=== PATIENT | male | born 1985 | race Caucasian/White ===

== ENCOUNTER 2018-07-16 13:40 | Emergency (ER) | payer BC, SELFPAY ==
[2018-07-16] MEDS ORDERED: ONDANSETRON 4 MG/2 ML VIAL ONE (14:06)
[2018-07-16] MEDS ORDERED: TETRACAINE HCL 0.5% 2ML OPTH ONE (14:06)
[2018-07-16] MEDS ORDERED: NA CHLORIDE 0.9% 1,000 ML ONE (14:06)
[2018-07-16] MEDS ORDERED: MORPHINE 4 MG/ML SYR ONE (14:06)
[2018-07-16] MEDS ORDERED: NA CHLORIDE 0.9% 500 ML ONE (14:13)
[2018-07-16] MEDS ORDERED: FLUORESCEIN SODIUM 0.6 MG/WRAP ONE (14:13)
[2018-07-16] MEDS ORDERED: PIPER/TAZO/NS 3.375gm 3.375 GM/100 ML BAG ONE (14:45)
[2018-07-16] MEDS ORDERED: LORazepam 2 MG/ML VIAL ONE (14:45)
--- NOTE | 2018-07-16 15:07 | ER ---
Nurse's Notes [facility] Name: Scott Alvarez Age: 33 yrs Sex: Male : 1985 Arrival Date: 07/16/2018 Time: 13:43 Bed 13 Private MD: Diagnosis: CHEMICAL CONJUNCTIVITIS Presentation: 07/16 13:52 Presenting complaint: Patient states: about two days ago I started having pain and sg redness in my eye, i thought it was pink eye so I began treating it with some Eye drops that I had left from a previous infection. Today my face is swelling and my eyes are red, the light is killing me, Cha never had this happen before. Transition of care: patient was not received from another setting of care. Onset of symptoms was July 16, 2018. Risk Assessment: Do you want to hurt yourself or someone else? Patient reports no desire to harm self or others. Initial Sepsis Screen: Does the patient meet any 2 criteria? No. Patient's initial sepsis screen is negative. Does the patient have a suspected source of infection? No. Patient's initial sepsis screen is negative. Care prior to arrival: None. 13:52 Method Of Arrival: Ambulatory sg 13:52 Acuity: CHANEL 3 sg Historical: - Allergies: 13:54 No Known Allergies; sg - Home Meds: 14:35 testosterone [Active]; tw2 - PMHx: 13:54 Blood Disorder; sg - PSHx: 13:54 None; sg - Immunization history:: Adult Immunizations. - Social history:: Smoking status: Patient uses tobacco products, chewing tobacco. - Ebola Screening: : Patient negative for fever greater than or equal to 101.5 degrees Fahrenheit, and additional compatible Ebola Virus Disease symptoms Patient denies exposure to infectious person Patient denies travel to an Ebola-affected area in the 21 days before illness onset No symptoms or risks identified at this time. - Family history:: not pertinent. - Hospitalizations: : No recent hospitalization is reported. - History obtained from: . Screenin:32 Abuse screen: Denies threats or abuse. Nutritional screening: No deficits noted. tw2 Tuberculosis screening: No symptoms or risk factors identified. Fall Risk None identified. Assessment: 14:35 General: Appears uncomfortable, well groomed, Behavior is calm, cooperative, tw2 appropriate for age. Pain: Complains of pain in right eye and left eye. Neuro: Level of Consciousness is awake, alert, obeys commands, Oriented to person, place, time, situation. Cardiovascular: Denies chest pain, shortness of breath, Capillary refill Patient's skin is warm and dry. EENT: Eyes are tearing on right upper eyelid, right outer canthus, outer aspect of conjuctiva of right eye, iris of right eye, inner aspect of conjuctiva of right eye, right inner canthus, right lower eyelid, left upper eyelid, left outer canthus, outer aspect of conjuctiva of left eye, iris of left eye, inner aspect of conjunctiva of left eye, left inner canthus and left lower eyelid redness noted to b/l eyes. 14:36 Cardiovascular: Heart tones S1 S2. Respiratory: Airway is patent Respiratory effort is tw2 even, unlabored, Respiratory pattern is regular, symmetrical, Breath sounds are clear bilaterally. GI: No signs and/or symptoms were reported involving the gastrointestinal system. Abdomen is round non-distended, Bowel sounds present X 4 quads. : No signs and/or symptoms were reported regarding the genitourinary system. Derm: Skin is intact, is healthy with good turgor, Skin temperature is warm. Musculoskeletal: Range of motion: intact in all extremities. 15:30 Reassessment: No changes from previously documented assessment. Patient and/or family tw2 updated on plan of care and expected duration. Pain level reassessed. Patient is alert, oriented x 3, equal unlabored respirations, skin warm/dry/pink. 15:58 Reassessment: No changes from previously documented assessment. Patient and/or family tw2 updated on plan of care and expected duration. Pain level reassessed. Patient is alert, oriented x 3, equal unlabored respirations, skin warm/dry/pink. Patient states symptoms have improved. Vital Signs: 14:31 BP 162 / 99; Pulse 99; Resp 17; Pulse Ox 95% on R/A; Pain 10/10; tw2 14:32 Temp 98.9(O); tw2 15:30 BP 150 / 91; Pulse 97; Resp 17; Pulse Ox 97% on R/A; tw2 15:57 BP 153 / 93; Pulse 97; Resp 17; Pulse Ox 100% on R/A; tw2 14:31 b/l EYE PAIN tw2 ED Course: 13:43 Patient arrived in ED. mr 13:48 Shelia Headley FNP is [facility]. kav 13:48 Rico Elias MD is Attending Physician. kav 13:53 Halley Bradford, MAURICIO is Primary Nurse. tw2 13:53 Triage completed. sg 13:53 Arm band placed on. sg 13:53 Bed in low position. Call light in reach. Pulse ox on. NIBP on. tw2 13:55 Initial lab(s) drawn, by me, sent to lab. Inserted saline lock: 20 gauge in right sg antecubital area, using aseptic technique. Blood collected. 15:06 Maggie Fleming MD is Referral Physician. kav 15:14 Awaiting: COMPLETION OF IV ABX PRIOR TO DISCHARGE. tw2 15:59 No provider procedures requiring assistance completed. IV discontinued, intact, tw2 bleeding controlled, No redness/swelling at site. Pressure dressing applied. Administered Medications: Discontinued: NS 0.9% 500 ml IV at bolus once; to irrigate eyes 14:10 Drug: Zofran 4 mg Route: IVP; Site: right antecubital; tw2 15:08 Follow up: Response: No adverse reaction tw2 14:13 Drug: morphine 4 mg Route: IVP; Site: right antecubital; tw2 14:40 Follow up: Response: No adverse reaction tw2 14:15 Drug: NS 0.9% 1000 ml Route: IV; Rate: 1000 ml; Site: right antecubital; tw2 15:59 Follow up: IV Status: Completed infusion; IV Intake: 1000ml tw2 14:31 Drug: Tetracaine Drops 0.5 % 1 drops Route: Ophthalmic; Site: both eyes; tw2 14:33 Drug: NS 0.9% 500 ml {Note: both eyes.} Route: IV; Rate: bolus; Site: Other; tw2 15:13 Follow up: IV Status: Order to discontinue infusion tw2 14:42 Drug: Ativan 2 mg Route: IVP; Site: right antecubital; tw2 15:58 Follow up: Response: No adverse reaction tw2 14:54 Drug: Zosyn 3.375 grams Route: IVPB; Infused Over: 60 mins; Site: right antecubital; tw2 15:58 Follow up: Response: No adverse reaction; IV Status: Completed infusion tw2 15:13 CANCELLED (md discretion): Fluorescein Strip 2 strip Ophthalmic in both eyes once tw2 Intake: 15:59 IV: 1000ml; Total: 1000ml. tw2 Outcome: 15:07 Discharge ordered by MD. kav 15:59 Condition: stable tw2 16:00 Patient left the ED. tw2 16:00 Discharged to home ambulatory, with significant other. tw2 16:00 Discharge instructions given to patient, significant other, Instructed on discharge instructions, follow up and referral plans. medication usage, Demonstrated understanding of instructions, follow-up care, medications, Prescriptions given X 2. Signatures: Bandar Griggs, RN RN sg Shelia Headley, [employer] Lucie Croft mr Halley Bradford, RN RN tw2 Corrections: (The following items were deleted from the chart) 16:02 15:59 Discharged to home ambulatory, with significant other, tw2 tw2 16:02 15:59 Discharge instructions given to patient, significant other, Instructed on tw2 discharge instructions, follow up and referral plans. no drinking with medication, no driving heavy equipment, medication usage, crutch walking, Demonstrated understanding of instructions, follow-up care, medications, crutch walking, splint care, Prescriptions given X 1, tw2 16:03 16:00 Discharge instructions given to patient, significant other, Instructed on tw2 discharge instructions, follow up and referral plans. medication usage, Demonstrated understanding of instructions, follow-up care, medications, Prescriptions given X 1, tw2
--- NOTE | 2018-07-16 15:07 | EDPHYS ---
Physician Documentation [facility] Name: Scott Alvarez Age: 33 yrs Sex: Male : 1985 Arrival Date: 07/16/2018 Time: 13:43 Bed 13 Private MD: ED Physician Rico Elias HPI: 07/16 14:56 This 33 yrs old Male presents to ER via Ambulatory with complaints of Vision kav Problem. 14:56 Onset: The symptoms/episode began/occurred acutely, just prior to arrival. Associated kav signs and symptoms: Pertinent positives: bilateral eye swelling of eyelids and bilateral injected scleral. Modifying factors: The patient symptoms are alleviated by nothing, the patient symptoms are aggravated by nothing. The patient has not experienced similar symptoms in the past. The patient has not recently seen a physician. patient reports putting some over the counter eyedrops in both eyes. 15:00 The patient is experiencing floaters, redness, to both eyes, caused by chemicals. kav Duration: the symptoms are continuous. Aggravated by opening eye, Alleviated by covering eye, medications. Associated signs and symptoms: Pertinent positives: None. Pertinent negatives: None. Patient does not utilize any form of vision correction. Severity of symptoms: At their worst the symptoms were moderate just prior to arrival. Historical: - Allergies: 13:54 No Known Allergies; sg - Home Meds: 14:35 testosterone [Active]; tw2 - PMHx: 13:54 Blood Disorder; sg - PSHx: 13:54 None; sg - Immunization history:: Adult Immunizations. - Social history:: Smoking status: Patient uses tobacco products, chewing tobacco. - Ebola Screening: : Patient negative for fever greater than or equal to 101.5 degrees Fahrenheit, and additional compatible Ebola Virus Disease symptoms Patient denies exposure to infectious person Patient denies travel to an Ebola-affected area in the 21 days before illness onset No symptoms or risks identified at this time. - Family history:: not pertinent. - Hospitalizations: : No recent hospitalization is reported. - History obtained from: . ROS: 15:00 Constitutional: Negative for fever, chills, and weight loss, ENT: Negative for injury, kav pain, and discharge, Neck: Negative for injury, pain, and swelling, Cardiovascular: Negative for chest pain, palpitations, and edema, Respiratory: Negative for shortness of breath, cough, wheezing, and pleuritic chest pain, Abdomen/GI: Negative for abdominal pain, nausea, vomiting, diarrhea, and constipation, Back: Negative for injury and pain, : Negative for injury, bleeding, discharge, and swelling, MS/Extremity: Negative for injury and deformity, Skin: Negative for injury, rash, and discoloration, Neuro: Negative for headache, weakness, numbness, tingling, and seizure, Psych: Negative for depression, anxiety, suicide ideation, homicidal ideation, and hallucinations, Allergy/Immunology: Negative for hives, rash, and allergies, Endocrine: Negative for neck swelling, polydipsia, polyuria, polyphagia, and marked weight changes, Hematologic/Lymphatic: Negative for swollen nodes, abnormal bleeding, and unusual bruising. 15:00 Eyes: Positive for pain, redness, tearing, Negative for discharge. Exam: 15:00 Visual Acuity: I have reviewed the nursing documentation. kav 15:00 Constitutional: This is a well developed, well nourished patient who is awake, alert, and in no acute distress. Head/Face: Normocephalic, atraumatic. ENT: Nares patent. No nasal discharge, no septal abnormalities noted. Tympanic membranes are normal and external auditory canals are clear. Oropharynx with no redness, swelling, or masses, exudates, or evidence of obstruction, uvula midline. Mucous membranes moist. Neck: Trachea midline, no thyromegaly or masses palpated, and no cervical lymphadenopathy. Supple, full range of motion without nuchal rigidity, or vertebral point tenderness. No Meningismus. Chest/axilla: Normal chest wall appearance and motion. Nontender with no deformity. No lesions are appreciated. Cardiovascular: Regular rate and rhythm with a normal S1 and S2. No gallops, murmurs, or rubs. Normal PMI, no JVD. No pulse deficits. Respiratory: Lungs have equal breath sounds bilaterally, clear to auscultation and percussion. No rales, rhonchi or wheezes noted. No increased work of breathing, no retractions or nasal flaring. Abdomen/GI: Soft, non-tender, with normal bowel sounds. No distension or tympany. No guarding or rebound. No evidence of tenderness throughout. Back: No spinal tenderness. No costovertebral tenderness. Full range of motion. Skin: Warm, dry with normal turgor. Normal color with no rashes, no lesions, and no evidence of cellulitis. MS/ Extremity: Pulses equal, no cyanosis. Neurovascular intact. Full, normal range of motion. Neuro: Awake and alert, GCS 15, oriented to person, place, time, and situation. Cranial nerves II-XII grossly intact. Motor strength 5/5 in all extremities. Sensory grossly intact. Cerebellar exam normal. Normal gait. Psych: Awake, alert, with orientation to person, place and time. Behavior, mood, and affect are within normal limits. 15:00 Eyes: Periorbital structures: appear normal, erythema, that is moderate, bilaterally, Pupils: no acute changes, equal, round, and reactive to light and accomodation, Extraocular movements: no acute changes, Conjunctiva: injected, bilaterally, Corneas: are normal, no acute changes, Sclera: no appreciated abnormality. Vital Signs: 14:31 BP 162 / 99; Pulse 99; Resp 17; Pulse Ox 95% on R/A; Pain 10/10; tw2 14:32 Temp 98.9(O); tw2 15:30 BP 150 / 91; Pulse 97; Resp 17; Pulse Ox 97% on R/A; tw2 15:57 BP 153 / 93; Pulse 97; Resp 17; Pulse Ox 100% on R/A; tw2 14:31 b/l EYE PAIN tw2 MDM: 13:48 Medical screening is not applicable. kav 15:00 Differential diagnosis: Acute iritis of Chemical conjunctivitis in both eyes. Allergic kav conjunctivitis in both eyes. Data reviewed: vital signs, nurses notes. Administered Medications: Discontinued: NS 0.9% 500 ml IV at bolus once; to irrigate eyes 14:10 Drug: Zofran 4 mg Route: IVP; Site: right antecubital; tw2 15:08 Follow up: Response: No adverse reaction tw2 14:13 Drug: morphine 4 mg Route: IVP; Site: right antecubital; tw2 14:40 Follow up: Response: No adverse reaction tw2 14:15 Drug: NS 0.9% 1000 ml Route: IV; Rate: 1000 ml; Site: right antecubital; tw2 15:59 Follow up: IV Status: Completed infusion; IV Intake: 1000ml tw2 14:31 Drug: Tetracaine Drops 0.5 % 1 drops Route: Ophthalmic; Site: both eyes; tw2 14:33 Drug: NS 0.9% 500 ml {Note: both eyes.} Route: IV; Rate: bolus; Site: Other; tw2 15:13 Follow up: IV Status: Order to discontinue infusion tw2 14:42 Drug: Ativan 2 mg Route: IVP; Site: right antecubital; tw2 15:58 Follow up: Response: No adverse reaction tw2 14:54 Drug: Zosyn 3.375 grams Route: IVPB; Infused Over: 60 mins; Site: right antecubital; tw2 15:58 Follow up: Response: No adverse reaction; IV Status: Completed infusion tw 15:13 CANCELLED (md discretion): Fluorescein Strip 2 strip Ophthalmic in both eyes once tw2 Disposition: 07/16/18 15:07 Discharged to Home. Impression: CHEMICAL CONJUNCTIVITIS. - Condition is Stable. - Prescriptions for cefdinir 300 mg Oral capsule - take 1 capsule by ORAL route every 12 hours; 20 capsule. Ultram 50 mg Oral Tablet - take 1 tablet by ORAL route every 6 hours As needed; 30 tablet. - Medication Reconciliation Form, Thank You Letter, Antibiotic Education, Prescription Opioid Use, Work release form form. - Follow up: Private Physician; When: 2 - 3 days; Reason: Recheck today's complaints, Continuance of care, Re-evaluation by your physician. Follow up: Maggie Fleming MD; When: 1 - 2 days; Reason: Recheck today's complaints, Continuance of care, Re-evaluation by your physician. - Problem is new. - Symptoms have improved. Addendum: 07/18/2018 08:08 Co-signature as Attending Physician, Rico Elias MD I agree with the assessment and w a plan of care. Signatures: Bandar Griggs, RN RN Shelia Sandhu, DIRECTOR MARKETING ANALYTICS DIRECTOR [employer]ETING [employer]NALYT[employer] Halley Padron RN RN tw2 Rico Elias MD MD ks Corrections: (The following items were deleted from the chart) 07/16 15:13 15:07 Fluorescein Strip 2 strip Ophthalmic in both eyes once ordered. tw2 tw2 16:00 15:07 07/16/2018 15:07 Discharged to Home. Impression: CHEMICAL CONJUNCTIVITIS. tw2 Condition is Stable. Forms are Medication Reconciliation Form, Thank You Letter, Antibiotic Education, Prescription Opioid Use. Follow up: Private Physician; When: 2 - 3 days; Reason: Recheck today's complaints, Continuance of care, Re-evaluation by your physician. Follow up: Maggie Fleming; When: 1 - 2 days; Reason: Recheck today's complaints, Continuance of care, Re-evaluation by your physician. Problem is new. Symptoms have improved. kaerica
== END 2018-07-16 16:00 | disposition home or self-care (01) ==
LOC: ER 13:40
DX: H10.213 Acute toxic conjunctivitis, bilateral (principal); Z72.0 Tobacco use
CPT/HCPCS: 96361; 96365; 96375; 99284; J2405; J2543; J7030

== ENCOUNTER 2019-01-04 12:29 | Emergency (ER) | payer SELFPAY ==
--- NOTE | 2019-01-04 13:54 | ER ---
Nurse's Notes [facility] Name: Scott Alvarez Age: 33 yrs Sex: Male : 1985 Arrival Date: 01/04/2019 Time: 12:31 Bed 19 Private MD: Diagnosis: Visual disturbances Presentation: 01/04 12:51 Presenting complaint: Patient states: "I was just sitting watching TV Friday and a aa5 bright light came on the TV and ever since then I see a bright spot on my left eye". Pt states "my left eye is irritating and my eyes have been watering and sensitive to light". Transition of care: patient was not received from another setting of care. Onset of symptoms was December 2018. Risk Assessment: Do you want to hurt yourself or someone else? Patient reports no desire to harm self or others. Initial Sepsis Screen: Does the patient meet any 2 criteria? No. Patient's initial sepsis screen is negative. Does the patient have a suspected source of infection? No. Patient's initial sepsis screen is negative. Care prior to arrival: None. 12:51 Method Of Arrival: Ambulatory aa5 12:51 Acuity: CHANEL 2 aa5 Triage Assessment: 12:56 General: Appears in no apparent distress. uncomfortable, Behavior is calm, cooperative, hj appropriate for age. Pain: Denies pain. Historical: - Allergies: 12:54 No Known Allergies; aa5 - Home Meds: 13:01 testosterone [Active]; hj - PMHx: 12:54 blood disorder; aa5 - PSHx: 12:54 None; aa5 - Immunization history:: Flu vaccine status is unknown. - Social history:: Smoking status: Patient/guardian denies using tobacco. - Ebola Screening: : No symptoms or risks identified at this time. Screenin:56 Abuse screen: Denies threats or abuse. Denies injuries from another. Nutritional hj screening: No deficits noted. Tuberculosis screening: No symptoms or risk factors identified. Fall Risk None identified. Vital Signs: 12:54 BP 164 / 96; Pulse 95; Resp 18 S; Temp 98.6(TE); Pulse Ox 96% on R/A; Weight 141.97 kg aa5 (R); Height 5 ft. 11 in. (180.34 cm) (R); Pain 0/10; 12:54 Body Mass Index 43.65 (141.97 kg, 180.34 cm) aa5 ED Course: 12:31 Patient arrived in ED. mr 12:51 Arm band placed on. aa5 12:53 Triage completed. aa5 12:55 Art Oropeza RN is Primary Nurse. hj 12:57 Patient has correct armband on for positive identification. Bed in low position. Call hj light in reach. Side rails up X 1. 13:09 Joni Lombardi MD is Attending Physician. gs 13:52 Vito Diallo MD is Referral Physician. gs 14:12 No provider procedures requiring assistance completed. Patient did not have IV access hj during this emergency room visit. 14:19 Primary Nurse role handed off by Art Oropeza RN gs Administered Medications: No medications were administered Outcome: 13:53 Discharge ordered by . gs 14:12 Discharged to home ambulatory, with family. hj 14:12 Condition: stable 14:12 Discharge instructions given to patient, family, Instructed on discharge instructions, follow up and referral plans. Demonstrated understanding of instructions, follow-up care. 14:12 Patient left the ED. hj 14:20 Patient left the ED. Signatures: Edita De La Vega mr Chew, Dori RN RN aa5 Art Oropeza RN RN Joni Lombardi MD MD Corrections: (The following items were deleted from the chart) 12:54 12:51 Presenting complaint: Patient states: "I was just sitting watching TV Friday aa5 and a bright light came on the TV and ever since then I see a bright spot on my left eye". aa5 13:03 12:51 Acuity: CHANEL 3 aa5 aa5
--- NOTE | 2019-01-04 13:55 | EDPHYS ---
Physician Documentation [facility] Name: Scott Alvarez Age: 33 yrs Sex: Male : 1985 Arrival Date: 01/04/2019 Time: 12:31 Bed 19 Private MD: ED Physician Joni Lombardi HPI: 01/04 14:14 This 33 yrs old Male presents to ER via Ambulatory with complaints of Eye gs Problem. 14:14 The patient is experiencing decreased vision. Onset: The symptoms/episode gs began/occurred 2 day(s) ago, and became persistent. Duration: the symptoms are continuous. Aggravated by FOCUSING. WAS WATCHING TV SAW A BRIGHT LIGHT SINCE THEN SEES BLACK DOT OUT OF LEFT EYE WHICH TRACKS WITH EYE MOVEMENT. Historical: - Allergies: 12:54 No Known Allergies; aa5 - Home Meds: 13:01 testosterone [Active]; hj - PMHx: 12:54 blood disorder; aa5 - PSHx: 12:54 None; aa5 - Immunization history:: Flu vaccine status is unknown. - Social history:: Smoking status: Patient/guardian denies using tobacco. - Ebola Screening: : No symptoms or risks identified at this time. ROS: 14:14 Neuro: Negative for altered mental status, numbness, speech changes, weakness. gs 14:14 All other systems are negative. Exam: 14:14 Head/Face: Normocephalic, atraumatic. Eyes: Pupils equal round and reactive to light, gs extra-ocular motions intact. Lids and lashes normal. Conjunctiva and sclera are non-icteric and not injected. Cornea within normal limits. Periorbital areas with no swelling, redness, or edema. ENT: Nares patent. No nasal discharge, no septal abnormalities noted. Tympanic membranes are normal and external auditory canals are clear. Oropharynx with no redness, swelling, or masses, exudates, or evidence of obstruction, uvula midline. Mucous membranes moist. Cardiovascular: Regular rate and rhythm with a normal S1 and S2. No gallops, murmurs, or rubs. Normal PMI, no JVD. No pulse deficits. Respiratory: Lungs have equal breath sounds bilaterally, clear to auscultation and percussion. No rales, rhonchi or wheezes noted. No increased work of breathing, no retractions or nasal flaring. Abdomen/GI: Soft, non-tender, with normal bowel sounds. No distension or tympany. No guarding or rebound. No evidence of tenderness throughout. Skin: Warm, dry with normal turgor. Normal color with no rashes, no lesions, and no evidence of cellulitis. MS/ Extremity: Pulses equal, no cyanosis. Neurovascular intact. Full, normal range of motion. Neuro: Awake and alert, GCS 15, oriented to person, place, time, and situation. Cranial nerves II-XII grossly intact. Motor strength 5/5 in all extremities. Sensory grossly intact. Cerebellar exam normal. Normal gait. 14:14 Eyes: Extraocular movements: no acute changes, Corneas: no acute changes. Vital Signs: 12:54 BP 164 / 96; Pulse 95; Resp 18 S; Temp 98.6(TE); Pulse Ox 96% on R/A; Weight 141.97 kg aa5 (R); Height 5 ft. 11 in. (180.34 cm) (R); Pain 0/10; 12:54 Body Mass Index 43.65 (141.97 kg, 180.34 cm) aa5 MDM: 13:34 Patient medically screened. 14:14 Differential diagnosis: RETINAL DETACHMENT, CENTRAL VESSEL OCCLUSION. Data reviewed: vital signs, nurses notes. Physician consultation: Vito Diallo MD regarding patient's condition, and will see patient shortly, later today. ED course: NO EVIDENCE OF CVA, NO HEMIANOPSIA, TOLD TO RETURN IF ANY ISSUES SEEING OPTH.. 14:19 Counseling: I had a detailed discussion with the patient and/or guardian regarding: the gs presence of at least one elevated blood pressure reading (>120/80) during this emergency department visit. Special discussion: I have referred the patient to see his PCP for further evaluation of high blood pressure. Administered Medications: No medications were administered Disposition: 01/04/19 13:53 Discharged to Home. Impression: Visual disturbances. - Condition is Stable. - Discharge Instructions: Blurred Vision, Adult, Managing Your Hypertension. - Medication Reconciliation Form, Thank You Letter, Antibiotic Education, Prescription Opioid Use form. - Follow up: Vito Diallo MD; When: Today; Reason: 3:30 PM. Signatures: Dori Chew RN RN aa5 Art Oropeza RN RN Joni Lombardi MD MD Corrections: (The following items were deleted from the chart) 14:12 13:53 01/04/2019 13:53 Discharged to Home. Impression: Visual disturbances. Condition hj is Stable. Forms are Medication Reconciliation Form, Thank You Letter, Antibiotic Education, Prescription Opioid Use. Follow up: Vito Diallo; When: Today; Reason: 3:30 PM. gs 14:20 14:12 01/04/2019 13:53 Discharged to Home. Impression: Visual disturbances. Condition gs is Stable. Discharge Instructions: Blurred Vision, Adult. Forms are Medication Reconciliation Form, Thank You Letter, Antibiotic Education, Prescription Opioid Use. Follow up: Vito Diallo; When: Today; Reason: 3:30 PM. hj
== END 2019-01-04 14:20 | disposition home or self-care (01) ==
LOC: ER 12:29
DX: H53.8 Other visual disturbances (principal)
CPT/HCPCS: 99281

== ENCOUNTER 2020-08-15 15:48 | Emergency (ER) | payer OTHER, BC ==
--- OUTSIDE RECORDS SUMMARY | 2020-08-15 15:50 | XMS REPORT | Continuity of Care Document ---
:[address] [facility] t Address [address] [place] [address] Care Team Providers Name Role Phone Asked, Pcp Primary Care Physician Unavailable Walt Leon Attending Clinician Lab, Fam Pob I Attending Clinician Unavailable Doctor Unassigned, Name Attending Clinician Unavailable Lab, Covid Attending Clinician Unavailable ECHO Attending Clinician Unavailable Avelino KONG, I Attending Clinician Payers Payer Name Policy Type Policy Effective Date Expiration Date [facility] Number BCBSBCBS CHOICE [id number] 2019 [place] PPO/FEDERAL 00:00:00 Islam EMPL [id number] 2019-Presen tPPO Problems Condition Condition Condition Status Onset Resolution Last Treating Co mments Source Name Details Category Date Date Treatment Clinician Date Abdominal Abdominal Disease Active Tru ston pain pain 04-21 Methodi 00:00: st 00 Allergies, Adverse Reactions, Alerts This patient has no known allergies or adverse reactions. Social History Social Habit Start Date Stop Date Quantity Comments Source Sex Assigned At [facility] ethodist Tobacco use and 2020-04-21 2020-04-21 Never used [facility] ethodist exposure 00:00:00 00:00:00 Alcohol intake 2020-04-21 2020-04-21 Ex-drinker [facility] thodist 00:00:00 00:00:00 (finding) Smoking Status Start Date Stop Date Source Never smoker [place] Methodis t Medications Ordered Filled Start Stop Current Ordering Indication Dosage Frequency Signature Comments Components Source Medication Medication Date Date Medication? Clinician (SIG) Name Name anastrozole 2019- Yes 1mg Take 1 mg [place] (ARIMIDEX) 5-20 by mouth. Meth selina 1 mg chemo 00:00: st tablet 00 metFORMIN 2019-0 Yes 1000mg Take 1,000 [place] (GLUCOPHAGE 5-20 mg by Methodi ) 1,000 mg 00:00: mouth. st tablet 00 phentermine 2019-0 Yes TK ONE C [place] 15 MG 5-20 PO QAM Methodi capsule 00:00: st 00 tamoxifen 2020-0 Yes TK 1 T PO Tru ston (NOLVADEX) 5-20 BID PRF Method i 10 MG chemo 00:00: NIPPLE st tablet 00 SENSITIVIT Y testosteron 2015-11 Yes Inject 1.0 Barnes e cypionate 2-14 mL into Metho di (DEPOTESTOT 00:00: the muscle st ERONE 00 twice CYPIONATE) weekly 200 mg/mL injection Procedures This patient has no known procedures. Plan of Care Planned Activity Planned Date Details Comments Source Future Scheduled 2020-07-25 INFLUENZA VACCINE Ramakrishna n Islam Test 00:00:00 [code = INFLUENZA VACCINE] Encounters Start End Encounter Admission Attending Care Care Encounter Source Date/Time Date/Time Type Type Clinicians Facility Department ID 2020-06-10 2020-06-10 Telephone YiAGUILA tavarez [id number] 1964 00:00:00 00:00:00 Yudi GRACE [id number] [facility] [id number] 2020-06-08 2020-06-08 Laboratory Lab, [facility] [id number] 10:48:07 11:08:07 Only Fam Pob I Health [id number] [place] [id number] Professio [id number] nal [address] One 2020-06-08 2020-06-08 Letter Doctor SHEEHAN [id number] 00:00:00 00:00:00 (Out) Unassigned, LESLY [id number] Kiel [facility] [id number] 2020-06-08 2020-06-08 Letter Lab, Pcp [facility] [id number] 00:00:00 00:00:00 (Out) [facility] [id number] [place] [id number] Zunilda [id number] nal 044 Office [address] One 2020-04-21 2020-04-21 Outpatient ECHO, [facility] [id number] [place] 00:00:00 00:00:00 JASMEET Moore Method i st 2020-04-12 2020-04-12 Office SEAN You [id number] 14:49:16 16:18:21 Visit [place] [place] AMBULATOR [id number] Y [id number] Results This patient has no known results.
--- OUTSIDE RECORDS SUMMARY | 2020-08-15 15:50 | XMS REPORT | Clinical Summary ---
:1985 Author Organization [facility] Address [address] [place] [address] Care Team Providers Name Role Phone Asked, No Pcp Primary Care Provider Unavailable Allergies No Known Active Allergies Medications Medication Sig Dispensed Refills Start Date End Date Status testosterone Inject 1.0 mL into 0 11/06/2016 Active cypionate the muscle twice (DEPOTESTOTERONE weekly CYPIONATE) 200 mg/mL injection anastrozole Take 1 mg by mouth. 0 04/12/2020 Active (ARIMIDEX) 1 mg chemo tablet metFORMIN Take 1,000 mg by 0 04/12/2020 Ac tive (GLUCOPHAGE) 1,000 mg mouth. tablet phentermine 15 MG TK ONE C PO QAM 0 04/12/2020 Active capsule tamoxifen (NOLVADEX) TK 1 T PO BID PRF 0 04/12/2020 Active 10 MG chemo tablet NIPPLE SENSITIVITY Active Problems Problem Noted Date Abdominal pain 04/21/2020 Encounters Date Type Specialty Care Team Description 04/21/2020 Travel 04/06/2020 Travel after 08/15/2019 Social History Tobacco Use Types Packs/Day Years Used Date Never Smoker Smokeless Tobacco: Never Used Alcohol Use Drinks/Week oz/Week Comments Not Currently Sex Assigned at Date Recorded Not on file Last Filed Vital Signs Not on file Plan of Treatment Health Maintenance Due Date Last Done Comments INFLUENZA VACCINE 07/25/2020 11/05/2016 Results Not on fileafter 08/15/2019 Chery Alvarez Personal/Family Self 1985 [phone] (Home) [place] [address] Advance Directives For more information, please contact: [phone] Type Date Recorded 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
--- OUTSIDE RECORDS SUMMARY | 2020-08-15 15:50 | XMS REPORT | Summary of Care ---
:1985 Author Organization [facility] Address [address] [place] [address] Care Team Providers Name Role Phone Pcp, Does Not Have A Primary Care Provider Encounter Details Date Type Department Care Team Description 06/08/2020 Letter (Out) [facility] Family Medicine - Lab, Pcp Co clarence Heredia [address] [place] [address] [place] [address] Allergies Not on Filedocumented as of this encounter (statuses as of 06/08/2020) Medications Not on filedocumented as of this encounter (statuses as of 06/08/2020) Active Problems Not on filedocumented as of this encounter (statuses as of 06/08/2020) Social History Tobacco Use Types Packs/Day Years Used Date Never Assessed Sex Assigned at Date Recorded Not on file Job Start Date Occupation Industry Not on file Not on file Not on file Travel History Travel Start Travel End No recent travel history available. documented as of this encounter Last Filed Vital Signs Not on filedocumented in this encounter Plan of Treatment Health Maintenance Due Date Last Done Comments VARICELLA VACCINES (1 of 2 - 1986 2-dose childhood series) DTaP,Tdap,and Td Vaccines (1 - 1996 Tdap) Depression Screening 1997 INFLUENZA VACCINE (#1) 2020 PNEUMOCOCCAL 0-64 YEARS COMBINED Aged Out No longer eligible based on SERIES patient's age to complete this topic documented as of this encounter Results Not on filedocumented in this encounter Additional Health Concerns Infection Onset Date Last Indicated Resolved Time COVID-19 Rule Out 06/08/2020 06/08/2020 documented as of this encounter Insurance Payer Benefit Plan Subscriber ID Effective Dates Phone Address Type / Group [place] [id number] 2019-[place] [phone] [address] [place] t 7 [id number] [place] [address] documented as of this encounter
--- OUTSIDE RECORDS SUMMARY | 2020-08-15 15:50 | XMS REPORT | Summary of Care ---
:1985 Author Organization [facility] Address [address] [place] [address] Care Team Providers Name Role Phone Pcp, Does Not Have A Primary Care Provider Reason for Visit Reason Comments Lab Results Encounter Details Date Type Department Care Team Description 06/10/2020 Telephone ACCESS [facility] Yudi Richmond PA Lab Results [address] [place] [address] [place] [address] Allergies Not on Filedocumented as of this encounter (statuses as of 06/11/2020) Medications Not on filedocumented as of this encounter (statuses as of 06/11/2020) Active Problems Not on filedocumented as of this encounter (statuses as of 06/11/2020) Social History Tobacco Use Types Packs/Day Years [...] Depression Screening 1997 INFLUENZA VACCINE (#1) 2020 11/05/2016 PNEUMOCOCCAL 0-64 YEARS COMBINED Aged Out No longer eligible based on SERIES patient's age to complete this topic documented as of this encounter Results Not on filedocumented in this encounter Additional Health Concerns Infection Onset Date Last Indicated Resolved Time COVID-19 Confirmed 06/08/2020 06/08/2020 documented as of this encounter Insurance Payer Benefit Plan Subscriber ID Effective Dates Phone Address Type / Group BCBS OF [facility] [id number] 2019-[place] [phone] [address] PPO/POS [place] t 7 [id number] [place] [address] documented as of this encounter
--- OUTSIDE RECORDS SUMMARY | 2020-08-15 15:50 | XMS REPORT | Summary of Care ---
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 [address] [address] Exposure to Covid-19 [facility] Fam Pob I Virus (Primary Dx) [address] [place] [address] Allergies Not on Filedocumented as of this [...] filedocumented in this encounter Plan of Treatment Name Type Priority Associated Diagnoses Order S chedule COVID-19 (PCR MOLECULAR LAB Routine Exposure to Covid -19 Expected: 06/08/2020, TESTING) Virus Expires: 2020 Health Maintenance Due Date Last Done Comments VARICELLA VACCINES (1 of 2 - 1986 2-dose childhood series) DTaP,Tdap,and Td Vaccines (1 - 1996 Tdap) Depression Screening 1997 INFLUENZA VACCINE (#1) 2020 PNEUMOCOCCAL 0-64 YEARS COMBINED Aged Out No longer eligible based on SERIES patient's age to complete this topic documented as of this encounter Results Not on filedocumented in this encounter Visit Diagnoses Diagnosis Exposure to Covid-19 Virus - Primary documented in this encounter Additional Health Concerns Infection Onset Date Last Indicated Resolved Time COVID-19 Rule Out 06/08/2020 06/08/2020 documented as of this encounter Insurance Payer Benefit Plan Subscriber ID Effective Dates Phone Address Type / Group BCBS OF [facility] [id number] 2019-[place] [phone] [address] PPO/POS [place] t 7 [id number] [place] [address] documented as of this encounter
--- OUTSIDE RECORDS SUMMARY | 2020-08-15 15:50 | XMS REPORT | Summary of Care ---
:1985 Author Organization [facility] - Health Address [address] [place] [address] Care Team Providers Name Role Phone Pcp, Does Not Have A Primary Care Provider Encounter Details Date Type Department Care Team Description 06/08/2020 Letter (Out) [facility] PLYmediaharRB-Doors Message s Doctor Unassigned, No [address] [facility] [place] [address] [address] [facility] [phone] [place] [address] Allergies Not on Filedocumented as of this [...] Results Not on filedocumented in this encounter Insurance Payer Benefit Plan Subscriber ID Effective Dates Phone Address Type / Group [id number] 2019-[place] [phone] [address] PPO/POS [facility] 7 [id number] [place] [address] documented as of this encounter
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
[2020-08-15 18:51] LABS: Absolute Lymphocytes (CBC) 1.9 K/uL (0.7-4.9); Basophils % 0.6 % (0-1.3); Hematocrit 51.2 % (39.6-49.0); Lymphocytes % 22.5 % (15.3-44.8); MPV 8.6 fL (7.6-11.3); RBC Red Blood Cell Count 5.87 M/uL (4.33-5.43)
[2020-08-15] MEDS ORDERED: FENTANYL CITR 100 MCG/2 ML ONE ×2 (18:54→19:33)
[2020-08-15 19:12] LABS: Potassium 4.1 mmol/L (3.5-5.1)
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
[2020-08-15 20:08] VITALS: TEMP 98.3
[2020-08-15 20:09] VITALS: BP 152/88; O2SAT 96
== END 2020-08-15 20:01 | disposition home or self-care (01) ==
LOC: ER 15:48
DX: S29.012A Strain of muscle and tendon of back wall of thorax, initial encounter (principal); V47.5XXA Car driver injured in collision with fixed or stationary object in traffic accident, initial encounter
CPT/HCPCS: 85025; 80048; 36415; 86900; 86850; 86901; 70450; 72125; 71260; 74177; 71045; 73030; Q9967; J3010 ×2; 99284

== ENCOUNTER 2020-12-22 09:26 | Day surgery (SDC) | payer BC ==
--- OUTSIDE RECORDS SUMMARY | 2020-12-22 09:43 | XMS REPORT | Continuity of Care Document ---
:1985 Author Organization [facility] t Address [address] [place] [address] Care Team Providers Name Role Phone Avelino KONG I Attending Clinician Walt Leon Attending Clinician Lab, Fam Pob I Attending Clinician Unavailable Doctor Unassigned, Name Attending Clinician Unavailable Lab, Covid Attending Clinician Unavailable ECHO Attending Clinician Unavailable Problems This patient has no known problems. Allergies, Adverse Reactions, Alerts This patient has no known allergies or adverse reactions. Medications This patient has no known medications. Procedures This patient has no known procedures. Encounters Start End Encounter Admission Attending Care Care Encounter Source Date/Time Date/Time Type Type Clinicians Facility Department ID 2020-11-29 2020-11-29 Office SEAN You [id number] 16:50:38 17:00:38 Visit [facility] AMBULATOR [id number] Y [id number] 2020-06-10 2020-06-10 Telephone AGUILA [place] [id number] 00:00:00 00:00:00 Yudi GRACE [id number] [facility] [id number] 2020-06-08 2020-06-08 Laboratory Lab, [facility] [id number] 10:48:07 11:08:07 Only Fam Pob I Health [id number] [place] [id number] Professio [id number] nal 044 Office [address] One 2020-06-08 2020-06-08 Letter Doctor AGUILA [id number] 00:00:00 00:00:00 (Out) Unassigned, LESLY [id number] [facility] [id number] 2020-06-08 2020-06-08 Letter Lab, Pcp [facility] [id number] 00:00:00 00:00:00 (Out) Covid Health [id number] [place] [id number] Professio [id number] nal 044 Office [address] [facility] 2020-04-21 2020-04-21 Outpatient ECHO, [facility] [id number] [address] [place] [address] 00:00:00 00:00:00 JASMEET [facility] 2020-04-12 2020-04-12 Office SEAN You [id number] 14:49:16 16:18:21 Visit [facility] AMBULATOR [id number] Y [id number] Results This patient has no known results.
--- OUTSIDE RECORDS SUMMARY | 2020-12-22 09:43 | XMS REPORT | Summary of Care ---
:[address] [facility] [place] [address] Care Team Providers Name Role Phone Unavailable Primary Care Provider Unavailable Reason for Visit Reason Comments Hypogonadism Encounter Details Date Type Department Care Team Description 11/29/[address] [facility] Aron You I, Hypogonadism Urology [address] [facility] [address] [place] [address] [address] [place], [place] [address] [phone] Allergies No Known Active Allergiesdocumented as of this encounter (statuses as of 11/30/2020) Medications Medication Sig Dispensed Refills Start Date End Date Status sildenafil citrate Take by mouth 10 Tab 2 11/01/2013 Active (VIAGRA) 100 MG as directed. tablet minocycline Take 1 Cap by 14 Cap 0 01/05/2015 Act peter (MINOCIN, DYNACIN) mouth two 100 MG capsule times daily. Syringe/Needle, Use as 50 Each 0 06/20/2015 Act peter Disp, (SYRINGE directed 3CC/23GX1") 23G X 1" 3 ML MISC testosterone Inject 1.0 mL 10 mL 2 11/06/2016 Ac tive cypionate into the (DEPOTESTOTERONE muscle twice CYPIONATE) 200 weekly MG/ML injection Chorionic Inject 1,500 1 Each 2 11/07/2016 Active Gonadotropin Units into (NOVAREL) 93[address] the skin UNITS injection every 7 days. phentermine 15 MG Take 1 Cap by 30 Cap 5 04/12/2020 Active capsule mouth every morning. modafinil Take 1 Tablet 15 Tablet 3 11/29/2020 Activ e (PROVIGIL) 100 MG by mouth 1 tablet every 48 hours for 120 days. metformin Take 1 Tablet 60 Tablet 2 11/29/2020 Activ e (GLUCOPHAGE) 1000 by mouth 2 MG tablet times daily (with meals). anastrozole Take 1 Tablet 60 Tablet 0 11/29/2020 Act peter (ARIMIDEX) 1 MG by mouth 2 tablet times weekly. tamoxifen Take 1 Tablet 60 Tablet 2 11/29/2020 Activ e (NOLVADEX) 10 MG by mouth 2 tablet times daily as needed for Other (nipple sensitivity). finasteride Take 1 Tablet 30 Tablet 3 11/29/2020 Act peter (PROSCAR) 5 MG by mouth 1 tablet daily for 120 days. metformin Take 1 Tab by 60 Tab 0 08/03/2020 Disco ntinued (GLUCOPHAGE) 1000 mouth 2 times 1 (*Therapy MG tablet daily (with complete d) meals). tamoxifen Take 1 Tab by 60 Tab 0 08/03/2020 Disco ntinued (NOLVADEX) 10 MG mouth 2 times 1 (*Therapy tablet daily as completed) needed for Other (nipple sensitivity). anastrozole Take 1 Tab by 60 Tab 0 08/03/2020 Dis continued (ARIMIDEX) 1 MG mouth 2 times 1 (*Therapy tablet weekly. completed) finasteride Take 1 Tablet 30 Tablet 3 11/29/2020 Dis continued (PROSCAR) 5 MG by mouth 1 (*Err or) tablet daily for 120 days. documented as of this encounter (statuses as of 11/30/2020) Active Problems Problem Noted Date Hypogonadism male 11/01/2013 Encounter for long-term (current) use of other medicat ions 11/01/2013 documented as of this encounter (statuses as of 11/30/2020) Immunizations Name Administration Dates Next Due Influenza Intradermal 11/05/2016 documented as of this encounter Social History Tobacco Use Types Packs/Day Years Used Date Never Smoker Smokeless Tobacco: Current User Chew Comments: 1/2 can per day Alcohol Use Drinks/Week oz/Week Comments Yes 20 Standard drinks or equivalent 20.0 Sex Assigned at Date Recorded Not on file documented as of this encounter Last Filed Vital Signs Vital Sign Reading Time Taken Comments Blood Pressure 143/80 11/29/2020 6:25 PM EDUCATION PARAPROFESSIONAL Pulse 93 11/29/2020 6:25 PM EDUCATION PARAPROFESSIONAL Temperature - - Respiratory Rate - - Oxygen Saturation - - Inhaled Oxygen Concentration - - Weight 129.3 kg (285 lb) 11/29/2020 6:25 PM EDUCATION PARAPROFESSIONAL Height 154.9 cm (5' 1") 11/29/2020 6:25 PM EDUCATION PARAPROFESSIONAL Body Mass Index 53.85 11/29/2020 6:25 PM EDUCATION PARAPROFESSIONAL documented in this encounter Progress Notes Armani You MD - 11/29/2020 4:40 PM CSTI saw and evaluated the patient and agree with the resident's/fellow's findings as written. 35 y.o. 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 -On hold until umbilical hernia is repaired, has been evaluated by general surgery (on hold due to COVID) -Goal weight: 240 lbs -Previously at [employer] -TC 150mg QW -Ipamorelin -Anastrazole Side effect: Primarily concerned about hair loss with the testosterone, refractory to rogaine Currently -TC 0.75cc BIW -Ran out of Anastrazole 1mg BIW since August 2020 (out of refills) -Currently on Tamoxifen 20 mg qHS without any breast enlargement or sensitivity (previously with nipple tenderness- resolved) -Weight loss regimen: Currently on modafinil (received it from ), and had anxiety + jitters/stuttering while on phentermine Patient does not want to preserve fertility and testicular size. Patient does have a personal history of gynecomastia and/or concerns about the condition. Patient does not have a Family History of Prostate Cancer. M-HypoG + CMP Gayathri Valle MD - 11/29/2020 4:40 PM CST Last seen on 04/12/2020 Hypogonadism -Check hypogonadal panel -TC 0.75cc BIW Estradiol Excess -Check E2 -anastrazole 1mg BIW Secondary Polycythemia -Check HCT -Discussed donating Secondary Dyslipidemia -Check Lipids Weight Management - Metformin/Lipo C/Phentermine Gynecomastia -referral for reduction surgery -tamoxifen prn New Patient Low Testosterone No chief complaint on file. HPI: 35 y.o. 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 -On hold until umbilical hernia is repaired, has been evaluated by general surgery (on hold due to COVID) -Goal weight: 240 lbs -Previously at [employer] -TC 150mg QW -Ipamorelin -Anastrazole Side effect: Primarily concerned about hair loss with the testosterone, refractory to rogaine Currently -TC 0.75cc BIW -Ran out of Anastrazole 1mg BIW since August 2020 (out of refills) -Currently on Tamoxifen 20 mg qHS without any breast enlargement or sensitivity (previously with nipple tenderness- resolved) -Weight loss regimen: Currently on modafinil (received it from ), and had anxiety + jitters/stuttering while on phentermine Patient does not want to preserve fertility and testicular size. Patient does have a personal history of gynecomastia and/or concerns about the condition. Patient does not have a Family History of Prostate Cancer. Review of Systems Skin: Negative Eyes: Negative ENT: Negative Musculoskeletal: Negative Respiratory: Negative Neurologic: Negative Gastrointestinal: Negative Hematologic Negative Cardiovascular: Negative Allergy: Negative The patient and I reviewed the written responses to the Department of Urology Questionnaire PartB. Major illness, prior hospitalizations, surgical procedures and current medications were validated and scanned into the medical record. Physical Exam: There were no vitals taken for this visit. There is no height or weight on file to calculate BMI. General: 35 y.o. male well developed, well nourished and in no acute distress, non-diaphoretic HEENT: NCAT, EOMI, hearing intact, mouth - mucus membranes moist Resipiratory: No audible wheezes, normal effort, symmetrical chest wall motion, no coughing noted Chest wall: + gynecomastia, no breast tenderness Neurologic: Grossly normal; nonfocal exam Abdomen: soft, non-tender,. No masses, no organomegaly, non-distended Genitalia: Testis descended bilaterally, testicular size 12 cc bilaterally, no varicocele palpable,vas deferens and epididymus palpable bilaterally, Normal phallus without lesions, meatus in normal anatomic location. Assessment and Plan There are no diagnoses linked to this encounter. I reviewed the common causes of hypogonadism with Mr. Alvarez. We will obtain a hypogonadal panel to determine if his hormonal axis is abnormal. I instructed him to touch base with us regarding replacement options if required. If needed, at that point we will begin treatment. I also reviewed with him common risks following testosterone replacement, including cholesterol imbalance, polycythemia, cancer progression and infertility. He understands these risks and wishes to proceed. Scott is to adhere to a strict followup either every 3-4 months or biannually. We reviewed with him with the [facility]'s Position Statement on testosterone therapy as well as our office's consent form. This patient has medical/surgicalhistory that complicates the prescribing of testosterone therapy. Yes We also reviewed his fertility status and whether sperm production and/or prevention of testicular atrophy is a concern. If so, HCG will be added. We also discussed the possibility of gynecomastia secondary to testosterone therapy and methods of prevention and/or treatment if this occurs. Hypogonadism -Check hypogonadal panel -Swithced to Testerone cypionate/propionate 1.0 cc IM BIW (Empower, patient states this formulation was more stable for him when he was body building) Estradiol Excess -Renew anastrazole 1mg BIW (Insurance) -Renew tamoxifen 20 mg qHS (Insurance) -E2: 24 on 03/2020 Secondary Polycythemia -Check HCT -Discussed donating Secondary Dyslipidemia -Check Lipids, discussed increasing whole grains for HDL Weight Management -Refilled Metformin (Insurance), Lipo C injections ([facility]) -Replace phentermine with modafinil 100 mg every other day Muscle bulking CJC-[id number]/Ipamorelin (Revive) 0.2 cc QHS Hair Loss Finasteride 1 mg daily Joint pain BPC-157 0.2 cc QHS Gynecomastia -Referral for reduction surgery -Daily tamoxifen 20 mg qHS Gayathri Thrasher MD ATION PARAPROFESSIONAL documented in this encounter Plan of Treatment Date Type Specialty Care Team Description 02/06/2021 Office Visit Urology Armani You MD [address] [place], [place] [address] [phone] Name Type Priority Associated Diagnoses Order S chedule SENSITIVE Lab Routine Hypogonadism in male Expecte d: 12/13/2020 ESTRADIOL,MALE(URO DEPT) (Ap proximate), Expires: 12/29/2020 PROLACTIN([facility]O DEPT) Lab Routine Hypogonadism in male Expected: 12/13/2020 (Approximate), Expires: 12/29/2020 Health Maintenance Due Date Last Done Comments COVID-19 Vaccine Evaluation 1985 TETANUS SHOT (ADULT) 2000 BMI FOLLOW UP PLAN 2003 FLU VACCINE > 6 MONTHS 06/24/2020 11/05/2016 HEPATITIS C SCREENING Completed 01/21/2014 HIV SCREENING Completed 01/21/2014 HPV VACCINE Aged Out No longer eligib le based on patient's age to complete this topic documented as of this encounter Procedures Procedure Name Priority Date/Time Associated Diagnosis Comme nts TESTOSTERONE, Routine 11/29/2020 7:45 Hypogonadism in male Re sults for this FREE/TOTAL SHGB PM EDUCATION PARAPROFESSIONAL procedure ar e in the results section. PROLACTIN Routine 11/29/2020 7:45 Results for this PM EDUCATION PARAPROFESSIONAL procedure are i n the results section. ESTRADIOL Routine 11/29/2020 7:45 Results for this PM EDUCATION PARAPROFESSIONAL procedure are i n the results section. HEMATOCRIT Routine 11/29/2020 7:45 Hypogonadism in male Res ults for this PM EDUCATION PARAPROFESSIONAL procedure are i n the results section. LIPID PANEL Routine 11/29/2020 7:45 Hypogonadism in male Res ults for this PM [employer]UCATION PARAPROFESSIONAL procedure are i n the results section. COMPREHENSIVE Routine 11/29/2020 7:45 Hypogonadism in male Re sults for this METABOLIC PANEL PM EDUCATION PARAPROFESSIONAL procedure ar e in the results section. documented in this encounter Results PROLACTIN (11/29/2020 7:45 PM EDUCATION PARAPROFESSIONAL) PROLACTIN 7.3 4.0 - 26.0 [facility] Comment: NG/ML NOTE: Methodology is Mia Diogenes Electrochemilumin escence Immunoassay (ECLIA). Values obtained with differ ent assays/manufacturers cannot be used interchangeabl y. Results should not be used as sole basis to establ elmo the presence or absence of malignancy. Unless Otherwise Indicated, All Testing Pe rformed At: [facility], [address] [place] [address] Tariff Compiling Clerk: Madhavi Ferrari CLIA Number [id number] [place]. [id number] Specimen Performing Organization Address [facility] Phon e Number [address] [address] ESTRADIOL (11/29/2020 7:45 PM EDUCATION PARAPROFESSIONAL) Pathologist [facility] ESTRADIOL LEVEL <17.0 <=60.7 PG/ML [facility] Comment: Note: Estradiol sensitivity is 17 PG/ML. If l ower levels of quantitation are necessary, consider u ltrasensitive estradiol by LC-MS/MS. Unless Otherwise Indicated, All Testing Pe rformed At: [facility], [address] [place] [address] Tariff Compiling Clerk: Madhavi Ferrari CLIA Number [id number] [place]. [id number] Specimen Performing Organization Address [facility] Phon e Number [address] [address] COMPREHENSIVE METABOLIC PANEL (11/29/2020 7:45 PM EDUCATION PARAPROFESSIONAL) Pathologist [facility] GLUCOSE 82 70 - 99 MG/DL [facility] BLOOD UREA NITROGEN 15 6 - 20 MG/DL [facility] CREATININE 1.02 0.80 - 1.40 [facility] MG/DL EGFR AA 110 >60 [facility] ML/MIN/1.73 EGFR 95 >60 [facility] ML/MIN/1.73 BUN/CREAT RATIO 15 6 - 28 RATIO [facility] SODIUM 141 133 - 146 [facility] MEQ/L POTASSIUM 4.5 3.5 - 5.4 [facility] MEQ/L CHLORIDE 103 95 - 107 [facility] MEQ/L CO2 25 19 - 31 MEQ/L [facility] CALCIUM 9.9 8.5 - 10.5 [facility] MG/DL PROTEIN TOTAL 7.3 6.1 - 8.3 [facility] G/DL ALBUMIN 5.0 3.5 - 5.2 [facility] G/DL GLOBULINS, SERUM, 2.3 1.9 - 3.7 [facility] TOTAL G/DL A/G RATIO 2.2 1.0 - 2.6 [facility] RATIO BILIRUBIN TOTAL 0.6 <=1.2 MG/DL [facility] ALKALINE 68 40 - 112 U/L [facility] PHOSPHATASE AST (SGOT) 27 9 - 50 U/L [facility] ALT (SGPT) 37 5 - 50 U/L [facility] Comment: Unless Otherwise Indicated, All Testing Pe rformed At: [facility], [address] [place] [address] Tariff Compiling Clerk: Madhavi Ferrari CLIA Number [id number] [place]. [id number] Specimen Blood Performing Organization Address [facility] Phon e Number [address] [address] TESTOSTERONE, FREE/TOTAL SHGB (11/29/2020 7:45 PM EDUCATION PARAPROFESSIONAL) TESTOSTERONE LEVEL 804 300 - 1,080 [facility] NG/DL SEX HORMONE BINDING 12.3 (L) 16.5 - 55.9 [facility] GLOBULIN NMOL/L CALC FREE 270.0 (H) 47.0 - 244.0 [facility] TESTOSTERONE Comment: PG/ML Unless Otherwise Indicated, All Testing Pe rformed At: [facility], [address] [place] [address] Tariff Compiling Clerk: Madhavi Ferrari CLIA Number [id number] [place]. [id number] Specimen Serum Performing Organization Address [facility] e Number [address] [address] LIPID PANEL (11/29/2020 7:45 PM EDUCATION PARAPROFESSIONAL) CHOLESTEROL 126 <200 MG/DL [facility] TRIGLYCERIDES 81 <150 MG/DL [facility] HDL CHOLESTEROL 26 (L) >39 MG/DL [facility] LDL CHOLESTEROL 83 <100 MG/DL [facility] CALCULATED Comment: NOTE: CALCULATED LDL IS BASED ON LUIS FERNANDO-SIMTH METHOD WHICH INCLUDES ADJUSTABLE TRIGLYCERIDE:VLDL CHOLESTEROL RATI O. THIS FACTOR VARIES BY MEASURED TRIGLYCERIDE AND NON-HD L CHOLESTEROL CONCENTRATIONS WITH INCREASED CALCULATED L DL SEEN IN HIGHER TRIGLYCERIDE OR LOWER NON-HDL SPECIMENS. FOR MORE INFORMATION, SEE CLIENT ANNOUNCEMENT AT [email or web address] LDL/HDL RATIO, SERUM 3.19 <3.55 RATIO [facility] Comment: Unless Otherwise Indicated, All Testing Pe rformed At: [facility], [address] [place] [address] Tariff Compiling Clerk: Madhavi Ferrari CLIA Number [id number] [facility] [place]. [id number] Specimen Blood Performing Organization Address [facility] Phon e Number [facility] [address] [place] [address] HEMATOCRIT (11/29/2020 7:45 PM EDUCATION PARAPROFESSIONAL) Pathologist Sig nature HEMATOCRIT 49.8 40.0 - 51.0 % [facility] Comment: NOTE NEW REFERENCE RANGES FOR MULTIPLE COMPONENTS OF C OMPLETE BLOOD COUNT EFFECTIVE 11/27/2020. THE ANALYTIC METHOD IS NOT CHANGED. PLEASE REVIEW PATIENT RESULTS AND REFERENCE I NTERVALS CAREFULLY. FOR MORE INFORMATION, CONTACT YOUR J2EE PROGRAMMER OR SEE URL [email or web address] Unless Otherwise Indicated, All Testing Pe rformed At: [facility], [address] [place] [address] Tariff Compiling Clerk: Madhavi Ferrari CLIA Number [id number] [facility] [place]. [id number] Specimen Blood Performing Organization Address [facility] Phon e Number [facility] [address] [place] [address] documented in this encounter Visit Diagnoses Diagnosis Hypogonadism in male - Primary documented in this encounter Insurance Payer Benefit Plan / Subscriber ID Effective Dates Phone Addre ss Type Group [facility] [id number] 2019-Present [id number] [facility] [phone] documented as of this encounter
[2020-12-22] MEDS ORDERED: Ringers Lactate 1,000 ML IV ONE ×2 (10:07→13:49)
[2020-12-22] MEDS: CEFAZOLIN/SWI 1gm 1 GM/10 ML SYR ONE ×3 (10:35→11:30)
[2020-12-22] MEDS ORDERED: FENTANYL CITR 100 MCG/2 ML ONE ×2 (11:21→13:00)
[2020-12-22] MEDS ORDERED: propofoL 200 MG/20 ML VIAL IV ONE (11:21)
[2020-12-22] MEDS ORDERED: MIDAZOLAM HCL 2 MG/2 ML INJ ONE (11:22)
[2020-12-22] MEDS ORDERED: LIDOCAINE 1% MPF 5 ML VIAL ONE (11:22)
[2020-12-22] MEDS: BUPIVACAINE 0.25% PF 30 ML VIAL ONE ×3 (11:26→11:44)
[2020-12-22] MEDS ORDERED: dexAMETHasone 10 MG/ML VIAL ONE (11:50)
[2020-12-22] MEDS ORDERED: KETOROLAC 30 MG/ML INJ ONE (12:06)
--- NOTE | 2020-12-22 13:44 | P.OP ---
Preoperative diagnosis: Incarcerated Umbilical Hernia ,Bilateral Gynecomastia Postoperative diagnosis: Incarcerated Umbilical Hernia ,Bilateral Gynecomastia Primary procedure: Open Umbilical Hernia Repair with mesh Secondary procedure: Bilateral Breast Lumpectomy Anesthesia: GETA+ Local Estimated blood loss: 20 cc Specimen: Bilateral breast tissue Findings: 1.5cm incarcerated umbilical hernia, bilat gynecomastia Complications: None Drain(s): PAU drain (10fr Round PAU drains placed bilaterally) Transferred to: Recovery Room Condition: Good
[2020-12-22] MEDS: FENTANYL CITR 100 MCG/2 ML ONE ×2 (14:15→14:22)
[2020-12-22] MEDS: HYDROMORPHONE HCL 1 MG/ML INJ ONE ×2 (14:28→14:34)
[2020-12-22] MEDS ORDERED: ONDANSETRON 4 MG/2 ML VIAL ONE (14:37)
[2020-12-22] MEDS ORDERED: HYDROCODONE/APAP 10/325 TAB ONE (15:28)
[2020-12-22 15:58] VITALS: BP 129/81; TEMP 97.2; O2SAT 96
--- NOTE | 2020-12-22 23:43 | OP ---
Date of Procedure: 12/22/2020 Surgeon: Ollie Venegas MD, Preoperative Diagnosis: Incarcerated umbilical hernia and bilateral gynecomastia. Postoperative Diagnosis: Incarcerated umbilical hernia and bilateral gynecomastia. Procedure Performed: 1. Open umbilical hernia repair with mesh. 2. Bilateral breast lumpectomy. Anesthesia: General endotracheal plus local. Estimated Blood Loss: 20 mL. Specimen: Bilateral breast tissue. Findings: 1.5 cm incarcerated umbilical hernia and bilateral gynecomastia. Complications: None. Drains: 10-Arabic round PAU drains placed in the bilateral pectoral regions. The patient is transferred to recovery room in good condition. Procedure In Detail: After informed consent was obtained, the patient was brought to the operating room, prepped and draped in usual sterile fashion. After adequate anesthesia was achieved, a curvilinear infraumbilical incision was made with a 15 blade down through subcutaneous tissues. Dissection continued down to the fascia overlying the abdominal wall. The hernia sac was appreciated in this area with incarcerated omentum. This was grasped, elevated, and Metzenbaum scissors were used to open this plane getting into the hernia sac at this point. I dissected the hernia sac free from the surrounding tissues and returned it to the preperitoneal space along with the hernia contents. The hernia was found to be approximately 1.5 cm in size. I then did a finger sweep in the preperitoneal space and removed all preperitoneal fat from this plane. After this was swept clear, I used 0 PDS sutures to repair. He had a 4.[address] hernia mesh in the preperitoneal position and secured in a pear-shaped fashion using the 0 PDS sutures in a circumferential fashion. Good apposition of the tissues was appreciated at this point. I then proceeded to use an additional 0 PDS suture to close the defect in a running fashion over the top of the mesh. At this point, the area was copiously irrigated multiple times until completely dry, and I closed the deep dermal planes using a 3-0 Vicryl suture in an interrupted fashion and closed the skin in a running fashion with 4-0 Monocryl with good apposition of the tissue. Dermabond was placed over top and a pressure dressing was placed in this area after the pulverization was complete. I then turned my attention to the left pectoral space. The gynecomastia tissue was palpated in the retroareolar and 3 o'clock position extending from the nipple-areolar complex. Therefore, I anesthetized the area around the nipple-areolar complex and made a curvilinear incision half [place] around the nipple-areolar complex down to subcutaneous tissues with a 15 blade. I then used electrocautery to dissect down through the tissues and dissected down the gynecomastia tissue in a circumferential fashion extending down laterally toward the 3 o'clock position. A specimen was taken at this point including the gynecomastia tissue and it was marked with a marking stitch short superior long lateral and sent off for pathologic examination. The area was copiously irrigated. Hemostasis was achieved with electrocautery. No additional hemostatic was required. At this point, I placed a 10-Arabic round PAU drain brought out more laterally through a stab incision and secured it to the skin with a 2-0 nylon suture, and I then closed the deep dermal plane with an interrupted 3-0 Vicryl suture and the skin was closed with a 4-0 Monocryl in a running fashion with Dermabond placed over top. A pressure dressing was then applied at this area. I then turned my attention to the RIGHT pectoral space. The gynecomastia tissue was palpated in the retroareolar and 9 o'clock position extending from the nipple-areolar complex. Therefore, I anesthetized the area around the nipple- areolar complex and made a curvilinear incision half [place] around the nipple- areolar complex down to subcutaneous tissues with a 15 blade. I then used electrocautery to dissect down through the tissues and dissected down the gynecomastia tissue in a circumferential fashion extending down laterally toward the 9 o'clock position. A specimen was taken at this point including the gynecomastia tissue and it was marked with a marking stitch short superior long lateral and sent off for pathologic examination. The area was copiously irrigated. Hemostasis was achieved with electrocautery. No additional hemostatic was required. At this point, I placed a 10-Arabic round PAU drain brought out more laterally through a stab incision and secured it to the skin with a 2-0 nylon suture, and I then closed the deep dermal plane with an interrupted 3-0 Vicryl suture and the skin was closed with a 4-0 Monocryl in a running fashion with Dermabond placed over top. A pressure dressing was then applied at this area. The patient tolerated the procedure well without evidence of complication and was transferred to PACU in good condition. All counts were correct at the end the case. AC/AYAD Voice ID: [id number] Report ID: [id number] MTDD
== END 2020-12-22 15:50 | disposition home or self-care (01) ==
LOC: OR 09:26
PROVIDERS: ATTEND Surgery
PROC: 0HBV0ZX Excision of Bilateral Breast, Open Approach, Diagnostic (ICD-10-PCS; 2020-12-22)
PROC: 0WUF0JZ Supplement Abdominal Wall with Synthetic Substitute, Open Approach (ICD-10-PCS; principal; 2020-12-22 11:30)
PROC: 0HBV0ZZ Excision of Bilateral Breast, Open Approach (ICD-10-PCS; 2020-12-22 11:30)
DX: K42.9 Umbilical hernia without obstruction or gangrene (principal); N62 Hypertrophy of breast; Z20.822 Contact with and (suspected) exposure to COVID-19
CPT/HCPCS: 88305; 49587; 19301; U0002; J2704; J2250; J3010 ×3; J1100; J1170; J0690; J7120 ×2; J2405

== ENCOUNTER 2021-12-12 21:23 | Emergency (ER) | payer BC, SELFPAY ==
--- OUTSIDE RECORDS SUMMARY | 2021-12-12 21:28 | XMS REPORT | Continuity of Care Document ---
:1985 Author Organization [facility] t Address [address] [place] [address] Care Team Providers Name Role Phone Radha KONG, S Attending Clinician Avelino KONG, I Attending Clinician Walt Leon Attending Clinician Lab, Fam Pob I Attending Clinician Unavailable Anene COURTESY CLERK Attending Clinician ANENE Attending Clinician Unavailable Doctor Unassigned, Name Attending Clinician Unavailable Lab, Covid Attending Clinician Unavailable ECHO Attending Clinician Unavailable Payers Payer Name Policy Type Policy Number Effective Date Expiration Date S mike [facility] [id number] 2019 00:00:00 Problems Condition Condition Condition Status Onset Resolution Last Treating Co mments Source Name Details Category Date Date Treatment Clinician Date Hypogonadi Hypogonadi Disease Active 2012-11 [place] sm male sm male 01-02 [place] 00:00: of 00 Medicin e Encounter Encounter Disease Active 2012-11 [place] for for 01-02 [place] long-term long-term 00:00: of (current) (current) 00 Medi yesy use of use of e other other medication medication s s No known No known Disease Unive rs active active ity of problems problems [facility] Allergies, Adverse Reactions, Alerts Allergy Allergy Status Severity Reaction(s) Onset Inactive Treating Comm ents Source Name Type Date Date Clinician NO KNOWN Drug Active Univers ALLERGIE Class ity of S [facility] Social History Social Habit Start Date Stop Date Quantity Comments Source History of Chews Tobacco [facility] Anand ege of tobacco use Medicine Tobacco Comment 1/2 can per day [facility] Exposure to Unable to assess Univers ity of SARS-CoV-2 [facility] (event) Branch Alcohol intake 2021-02-06 2021-02-06 Current drinker [facility] 00:00:00 00:00:00 of alcohol Medicine (finding) Tobacco use and 2021-02-06 2021-02-06 Current user [facility] exposure 00:00:00 00:00:00 Medicine Sex Ass[birth year] At [birth year] [facility] Co llege of 00:00:00 00:00:00 Medicine Smoking Status Start Date Stop Date Source Unknown [facility] Never smoker [facility] o f Medicine Medications Ordered Filled Start Stop Current Ordering Indication Dosage Frequency Signature Comments Components Source Medication Medication Date Date Medication? Clinician (SIG) Name Name methocarbam No 500mg 500 mg, U nivers oL 03-11 Oral, ity of (ROBAXIN) 13:45: 12:43 ONCE, 1 [place] tablet 500 [place] :00 dose, Sun Medi mayo mg 03/11/21 at Branch 0845, Routine HYDROmorpho No 2mg 2 mg, Slow Univers ne 03-11 IV Push, ity of (DILAUDID) 13:00: 11:59 ONCE, 1 [place] as injection 2 00 :00 dose, Sun Med ical mg 03/11/21 at Branch 0800, MARBELLA
Us e approved by (Faculty): ADC PROVIDER FENTanyl PF No 75ug 75 mcg, Un jasmeet (SUBLIMAZE 03-11 Intravenou it y of (PF)) 12:15: 11:28 s, ONCE, 1 [place] injection 00 :00 dose, Sun Medic al 75 mcg 03/11/21 at Branch 0715, Routine methocarbam Yes [id number] 750mg Take 1 Univers oL 750 mg -18 tablet by ity o f tablet 00:00: mouth [place] 00 every 6 Medical (six) Branch hours as needed (MUSCLLE SPASM). HYDROcodone 2020- No 4647 1{tbl} Take 1 U nivers -acetaminop 4-18 -26 tablet by it y of hen (NORCO) 00:00: 04:59 [place] 10-325 mg 00 :00 every 6 Medical tablet (six) Branch hours as needed for Pain (scale 7-10) for up to 7 days. Indication s: acute pain metformin 0 Yes 1000mg Take 1 [facility] (GLUCOPHAGE 1-06 Tablet by Col lege ) 1000 MG 00:00: mouth 2 of tablet 00 times Medicin daily e (with meals). anastrozole 0 Yes 1mg Take 1 [facility] (ARIMIDEX) 1-06 Tablet by Anand ege 1 MG tablet 00:00: mouth 2 of 00 times Medicin weekly. e tamoxifen Yes 10mg Take 1 [facility] (NOLVADEX) 1-06 Tablet by Anand ege 10 MG 00:00: mouth 2 of tablet 00 times Medicin daily as e needed for Other (nipple sensitivit y). metformin Yes 1000mg Take 1 [facility] (GLUCOPHAGE 1-06 Tablet by Col lege ) 1000 MG 00:00: mouth 2 of tablet 00 times Medicin daily e (with meals). anastrozole Yes 1mg Take 1 [facility] (ARIMIDEX) 1-06 Tablet by Anand ege 1 MG tablet 00:00: mouth 2 of 00 times Medicin weekly. e tamoxifen Yes 10mg Take 1 [place] (NOLVADEX) 1-06 Tablet by Anand ege 10 MG 00:00: mouth 2 of tablet 00 times Medicin daily as e needed for Other (nipple sensitivit y). finasteride 2020-0 2020- No 5mg Take 1 [place] (PROSCAR) 5 11-29-07 Tablet by Co llege MG tablet 00:00: 04:59 mouth of 00 :00 daily for Medicin 120 days. e modafinil 2020-0 2020- No 100mg Take 1 [facility] (PROVIGIL) 11-29-07 Tablet by Col lege 100 MG 00:00: 04:59 mouth of tablet 00 :00 every 48 Medicin hours for e 120 days. finasteride 2020-0 2020- No 5mg Take 1 [place] (PROSCAR) 5 1-06 05-07 Tablet by Co llege MG tablet 00:00: 04:59 mouth of 00 :00 daily for Medicin 120 days. e modafinil 2020- No 100mg Take 1 [facility] (PROVIGIL) 11-29 Tablet by Col lege 100 MG 00:00: 04:59 mouth of tablet 00 :00 every 48 Medicin hours for e 120 days. finasteride 2020- No 5mg Take 1 [place] (PROSCAR) 5 11-29 Tablet by Co llege MG tablet 00:00: 00:00 mouth of 00 :00 daily for Medicin 120 days. e metformin 2020- No 1000mg Take 1 Tab [facility] (GLUCOPHAGE 08-03 by mouth 2 C ollege ) 1000 MG 00:00: 00:00 times of tablet 00 :00 daily Medicin (with e meals). tamoxifen 2020- No 10mg Take 1 Tab [facility] (NOLVADEX) 08-03 by mouth 2 Co llege 10 MG 00:00: 00:00 times of tablet 00 :00 daily as Medicin needed for e Other (nipple sensitivit y). anastrozole 2020- No 1mg Take 1 Tab [place] (ARIMIDEX) 08-03 by mouth 2 Co llege 1 MG tablet 00:00: 00:00 times of 00 :00 weekly. Medicin e phentermine 2020-0 Yes 15mg Take 1 Cap [place] 15 MG 5-20 by mouth College capsule 00:00: every of 00 morning. Medicin e metformin 2020-0 Yes 1000mg Take 1 Tab [facility] (GLUCOPHAGE 5-20 by mouth 2 Co llege ) 1000 MG 00:00: times of tablet 00 daily Medicin (with e meals). anastrozole 2020-0 Yes 1mg Take 1 Tab [facility] (ARIMIDEX) 5-20 by mouth 2 Col lege 1 MG tablet 00:00: times of 00 weekly. Medicin e tamoxifen 2020-0 Yes 10mg Take 1 Tab [facility] (NOLVADEX) 5-20 by mouth 2 Col lege 10 MG 00:00: times of tablet 00 daily as Medicin needed for e Other (nipple sensitivit y). phentermine 2020-0 Yes 15mg Take 1 Cap [place] 15 MG 5-20 by mouth College capsule 00:00: every of 00 morning. Medicin e phentermine 2020-0 Yes 15mg Take 1 Cap [place] 15 MG 5-20 by mouth College capsule 00:00: every of 00 morning. Medicin e Chorionic 2015-11 Yes 1500U Inject [facility] Gonadotropi 2-15 1,500 College n (NOVAREL) 00:[place] [address] UNITS 00 the skin Medi yesy injection every 7 e days. Chorionic 2015-11 Yes 1500U Inject [facility] Gonadotropi 2-15 1,500 College n (NOVAREL) [place] [address] UNITS 00 the skin Medi yesy injection every 7 e days. Chorionic 2015-11 Yes 1500U Inject [facility] Gonadotropi 2-15 1,500 College n (NOVAREL) [place] [address] UNITS 00 the skin Medi yesy injection every 7 e days. testosteron 2015-11 Yes Inject 1.0 [place] e cypionate 2-14 mL into Colle ge (DEPOTESTOT 00:00: the muscle of ERONE 00 twice Medicin CYPIONATE) weekly e 200 MG/ML injection testosteron 2015-11 Yes Inject 1.0 [facility] e cypionate 2-14 mL into Colle ge (DEPOTESTOT 00:00: the muscle of ERONE 00 twice Medicin CYPIONATE) weekly e 200 MG/ML injection testosteron 2015-11 Yes Inject 1.0 [place] e cypionate 2-14 mL into Colle ge (DEPOTESTOT 00:00: the muscle of ERONE 00 twice Medicin CYPIONATE) weekly e 200 MG/ML injection anastrozole 2015-11- No Take 1 [place] (ARIMIDEX) 2- 05-20 tablet by Col lege 1 MG tablet 00:00: 00:00 mouth of 00 :00 twice Medicin weekly e tamoxifen 2015-11- No 20mg Take 1 Tab [facility] (NOLVADEX) 2-14 05-20 by mouth Anand ege 20 MG 00:00: 00:00 two times of tablet 00 :00 daily. Medicin e Syringe/Nee Yes Use as [facility] dle, Disp, 7-28 directed Colle ge (SYRINGE 00:00: of 3CC/23GX1") 00 Medicin 23G X 1" 3 e ML MISC Syringe/Nee Yes Use as [place] [facility] d[place], Disp, 7- directed Colle ge (SYRINGE 00:00: of 3CC/23GX1") 00 Medicin 23G X 1" 3 e ML MISC Syringe/Nee Yes Use as [place] [facility] dle, Disp, 7-28 directed Colle ge (SYRINGE 00:00: of 3CC/23GX1") 00 Medicin 23G X 1" 3 e ML MISC minocycline Yes 100mg Take 1 Cap [facility] (MINOCIN, 2-12 by mouth Colleg e DYNACIN) 00:00: two times of 100 MG 00 daily. Medicin capsule e minocycline 2014-0 Yes 100mg Take 1 Cap [facility] (MINOCIN, 2-12 by mouth Colleg e DYNACIN) 00:00: two times of 100 MG 00 daily. Medicin capsule e minocycline 2014- Yes 100mg Take 1 Cap [facility] (MINOCIN, 2-12 by mouth Colleg e DYNACIN) 00:00: two times of 100 MG 00 daily. Medicin capsule e sildenafil 2012-11 Yes Take by [facility] citrate 2-09 mouth as College (VIAGRA) 00:00: directed. of 100 MG 00 Medicin tablet e sildenafil 2012-11 Yes Take by [facility] citrate 2-09 mouth as College (VIAGRA) 00:00: directed. of 100 MG 00 Medicin tablet e sildenafil 2012-11 Yes Take by [facility] citrate 2-09 mouth as College (VIAGRA) 00:00: directed. of 100 MG 00 Medicin tablet e Immunizations Ordered Immunization Filled Immunization Date Status Commen ts Source Name Name Influenza 2016-11-05 Completed [facility] Intradermal 00:00:00 of Medicine Influenza 2016-11-05 Completed [facility] Intradermal 00:00:00 of Medicine Influenza 2016-11-05 Completed [facility] Intradermal 00:00:00 of Medicine Vital Signs Vital Name Observation Time Observation Value Comments Source Systolic blood 2021-03-11 12:00:00 141 mm[Hg] Univer [facility] Diastolic blood 2021-03-11 12:00:00 93 mm[Hg] Unive rselizabeth of [facility] Heart rate 2021-03-11 12:00:00 111 /min Universi ty [facility] Respiratory rate 2021-03-11 12:00:00 20 /min [facility] Oxygen saturation in 2021-03-11 12:00:00 95 /min [facility] Arterial blood by [facility] Pulse oximetry [place] Body temperature 2021-03-11 09:55:00 35.94 Ashly [facility] Body height 2021-03-11 09:55:00 180.3 cm Universi ty [facility] Body weight 2021-03-11 09:55:00 124.739 kg Universi ty [facility] BMI 2021-03-11 09:55:00 38.35 kg/m2 [facility] Systolic blood 2021-02-06 22:07:00 124 mm[Hg] [facility] of pressure Medicine Diastolic blood 2021-02-06 22:07:00 74 mm[Hg] [facility] of pressure Medicine Heart rate 2021-02-06 22:07:00 75 /min [facility] Body height 2021-02-06 22:07:00 180.3 cm [facility] Body weight 2021-02-06 22:07:00 128.822 kg [facility] BMI 2021-02-06 22:07:00 39.61 kg/m2 [facility] Systolic blood 2020-11-30 00:25:00 143 mm[Hg] [facility] of pressure Medicine Diastolic blood 2020-11-30 00:25:00 80 mm[Hg] [facility] of pressure Medicine Heart rate 2020-11-30 00:25:00 93 /min [facility] Body height 2020-11-30 00:25:00 154.9 cm [facility] Body weight 2020-11-30 00:25:00 129.275 kg [facility] ollege of Medicine BMI 2020-11-30 00:25:00 53.85 kg/m2 [facility] ollege of Medicine Systolic blood 2020-11-30 00:25:00 143 mm[Hg] [facility] of pressure Medicine Diastolic blood 2020-11-30 00:25:00 80 mm[Hg] [facility] of pressure Medicine Heart rate 2020-11-30 00:25:00 93 /min [facility] ollege of Medicine Body height 2020-11-30 00:25:00 154.9 cm [facility] ollege of Medicine Body weight 2020-11-30 00:25:00 129.275 kg [facility] ollege of Medicine BMI 2020-11-30 00:25:00 53.85 kg/m2 [facility] Systolic blood 2020-04-12 20:07:00 143 mm[Hg] [facility] of pressure Medicine Diastolic blood 2020-04-12 20:07:00 90 mm[Hg] [facility] of pressure Medicine Heart rate 2020-04-12 20:07:00 89 /min [facility] Body temperature 2020-04-12 20:07:00 36.78 Ashly [facility] Body height 2020-04-12 20:07:00 154.9 cm [facility] Body weight 2020-04-12 20:07:00 131.543 kg [facility] BMI 2020-04-12 20:07:00 54.80 kg/m2 [facility] Systolic blood 2020-04-12 20:07:00 143 mm[Hg] [facility] of pressure Medicine Diastolic blood 2020-04-12 20:07:00 90 mm[Hg] [facility] of pressure Medicine Heart rate 2020-04-12 20:07:00 89 /min [facility] Body temperature 2020-04-12 20:07:00 36.78 Ashly [facility] Body height 2020-04-12 20:07:00 154.9 cm [facility] Body weight 2020-04-12 20:07:00 131.543 kg [facility] BMI 2020-04-12 20:07:00 54.80 kg/m2 [facility] Procedures Procedure Date / Time Performing Clinician Source Performed XR PELVIS <3 VW 2021-03-11 11:27:53 Lay Garcia [facility] COMPREHENSIVE METABOLIC 2020-11-30 01:45:00 Armani You [facility] LIPID PANEL 2020-11-30 01:45:00 Armani You [facility] HEMATOCRIT 2020-11-30 01:45:00 Armani You I [facility] ESTRADIOL 2020-11-30 01:45:00 [facility] PROLACTIN 2020-11-30 01:45:00 Avelino [facility] TESTOSTERONE, FREE/TOTAL 2020-11-30 01:45:00 Armani You [facility] COMPREHENSIVE METABOLIC 2020-04-12 21:18:00 Armani You I [facility] LIPID PANEL 2020-04-12 21:18:00 Armani You [facility] HEMATOCRIT 2020-04-12 21:18:00 Avelino [facility] Plan of Care Planned Activity Planned Date Details Comments Source Diagnostic Test 2021-02-20 TESTOSTERONE-TOTAL(UR Expected: [facility] Pending 00:00:00 O DEPT) [code = 02/20/2021 of Medicine 2986-8] (Approximate), Expires: 03/08/2021 Diagnostic Test 2021-02-20 SENSITIVE ESTRADIOL, Expected: [facility] Pending 00:00:00 FEMALE(URO DEPT) 02/20/2021 of Medicine [code = 2243-4] (Approximate), Expires: 03/08/2021 Diagnostic Test 2021-02-20 PROLACTIN(URO DEPT) Expected: [facility] Pending 00:00:00 [code = 2842-3] 02/20/2021 of Medicine (Approximate), Expires: 03/08/2021 Diagnostic Test 2021-02-20 DHEA SULFATE(URO Expected: [facility] Arsh avila Pending 00:00:00 DEPT) [code = 2191-5] 02/20/2021 of Med icine (Approximate), Expires: 03/08/2021 Diagnostic Test 2021-02-20 SHBG(URO DEPT) [code Expected: [facility] Pending 00:00:00 = 09935] 02/20/2021 of Medicine (Approximate), Expires: 03/08/2021 Diagnostic Test 2020-12-13 SENSITIVE Expected: [facility] [place] ge Pending 00:00:00 ESTRADIOL,MALE(URO 12/13/2020 of Medici ne DEPT) [code = 2243-4] (Approximate), Expires: 12/29/2020 Diagnostic Test 2020-12-13 PROLACTIN(URO DEPT) Expected: [facility] Pending 00:00:00 [code = 2842-3] 12/13/2020 of Medicine (Approximate), Expires: 12/29/2020 Future Scheduled COMPREHENSIVE Ordered: [facility] Col lege Test METABOLIC PANEL [code 02/06/2021 of Med icine = 84762-3] Future Scheduled LIPID PANEL [code = Ordered: [facility] or [place] Test 87446-8] 02/06/2021 of Medicine Future Scheduled HEMATOCRIT [code = Ordered: [place] [facility] Test 4544-3] 02/06/2021 of Medicine Future Scheduled INSULIN LIKE GROWTH Ordered: [facility] or [place] Test FACTOR(IGF-1) [code = 02/06/2021 of Med icine 2484-4] Future Scheduled TETANUS SHOT (ADULT) [place] [facility] Test [code = TETANUS SHOT of Medi cine (ADULT)] Future Scheduled COVID-19 Vaccine (1) [facility] College Test [code = COVID-19 of Medicine Vaccine (1)] Future Scheduled BMI FOLLOW UP PLAN [facility] College Test [code = BMI FOLLOW UP of Med icine PLAN] Future Scheduled FLU VACCINE > 6 [facility] C ollege Test MONTHS [code = FLU of Medici ne VACCINE > 6 MONTHS] Future Scheduled INSULIN LIKE GROWTH Ordered: [facility] or [place] Test FACTOR(IGF-1) [code = 04/12/2020 of Med icine 2484-4] Future Scheduled TETANUS SHOT (ADULT) [place] College Test [code = TETANUS SHOT of Medi cine (ADULT)] Future Scheduled BMI FOLLOW UP PLAN [facility] Test [code = BMI FOLLOW UP of Med icine PLAN] Future Scheduled FLU VACCINE > 6 [facility] C ollege Test MONTHS [code = FLU of Medici ne VACCINE > 6 MONTHS] Future Scheduled COVID-19 Vaccine [facility] Test Evaluation [code = of Medici ne COVID-19 Vaccine Evaluation] Future Scheduled TETANUS SHOT (ADULT) [facility] Test [code = TETANUS SHOT of Medi cine (ADULT)] Future Scheduled BMI FOLLOW UP PLAN [facility] Test [code = BMI FOLLOW UP of Med icine PLAN] Future Scheduled FLU VACCINE > 6 [facility] C ollege Test MONTHS [code = FLU of Medici ne VACCINE > 6 MONTHS] Encounters Start End Encounter Admission Attending Care Care Encounter Source Date/Time Date/Time Type Type Clinicians Facility Department ID 2021-09-23 Emergency [facility] [id number] Univers 13:37:22 ity [facility] 2021-03-11 2021-03-11 Emergency [facility] [id number] Univers 04:48:00 09:04:00 Anushkashaista Dudley Heredia [id number] ity [facility] 4.2.7.2.686 [facility] [id number] [place] [id number] [place] 2021-02-06 2021-02-06 Office SEAN You [id number] [facility] 16:43:07 18:05:44 Visit Armani I AMBULATOR [id number] College Y 0.2.7.2.686 of [id number] [facility] yesy 300 e 2020-11-29 2020-11-29 Office SEAN You [id number] 16:50:38 17:00:38 Visit Armani I AMBULATOR [id number] Y 0.2.7.2.686 [id number] 300 2020-11-29 2020-11-29 Office SEAN You [id number] [facility] 16:50:38 17:00:38 Visit Armani I AMBULATOR [id number] College Y 0.2.7.2.686 of [id number] [facility] 300 e 2020-06-30 2020-06-30 Outpatient R [facility] [id number] Univers 08:45:00 08:45:00 ity [facility] 2020-06-30 2020-06-30 Outpatient R [facility] [id number] Univers 08:45:00 08:45:00 ity of [facility] 2020-06-10 2020-06-10 Telephone YiAGUILA tavarez [id number] [facility] 00:00:00 00:00:00 Yudi Walt LESLY [id number] i ty of [facility] 4.2.7.2.686 Rafael as [phone] [address] 2020-06-10 2020-06-10 Telephone AGUILA [place] [id number] [facility] 00:00:00 00:00:00 Yudi Walt [facility] 350.1.13.10 [facility] 4.2.7.2.686 [id number] 2020-06-08 2020-06-08 Laboratory Lab, [facility] Fam Pob I [facility] [id number] [facility] 10:48:07 11:08:07 Only Gisel, [facility] [id number] ity of [place] 4.2.7.2.686 Rafael as Professio [id number] Or dical [address] Office Building [facility] 2020-06-08 2020-06-08 Laboratory Lab, Adc [facility] [id number] 10:48:07 11:08:07 Only Fam Pob I Health 350.1.13.10 [place] 4.2.7.2.686 Professio [id number] [place] [address] Office Building [facility] 2020-06-08 2020-06-08 Outpatient R GISEL [facility] [id number] [facility] 10:00:00 10:00:00 TAMARA ity of [facility] 2020-06-08 2020-06-08 Letter Doctor AGUILA [id number] Univers 00:00:00 00:00:00 (Out) Unassigned, LESLY 350.1.13.10 ity of [place] [facility] 4.2.7.2.686 Rafael as [phone] [address] 2020-06-08 2020-06-08 Letter Lab, Pcp [facility] [id number] Univers 00:00:00 00:00:00 (Out) [facility] 350.1.13.10 it y of [place] 4.2.7.2.686 Rafael as Professio [phone] Or dical nal [address] Office Building One 2020-06-08 2020-06-08 Letter Doctor AGUILA 1.2.840.114 [id number] 00:00:00 00:00:00 (Out) Unassigned, LESLY 350.1.13.10 [place] [facility] 4.2.7.2.686 [id number] 044 2020-06-08 2020-06-08 Letter Lab, Pcp [facility] 1.2.840.114 [id number] 00:00:00 00:00:00 (Out) [facility] 350.1.13.10 [place] 4.2.7.2.686 Profpricilla [phone] nal 0[address] Office [address] One 2020-04-21 2020-04-21 Outpatient ECHO, [facility] [id number] [place] 00:00:00 00:00:[address] 2020-04-12 2020-04-12 Office SEAN You 1.2.840.114 [id number] 14:49:16 16:18:21 Visit Armani I AMBULATOR 350.1.13.21 Y 0.2.7.2.686 [id number] 300 2020-04-12 2020-04-12 Office SEAN You [id number] [facility] 14:49:16 16:18:21 Visit Armani I AMBULATOR 350.1.13.21 College Y 0.2.7.2.686 of [id number] [facility] 300 e Results Test Description Test Time Test Comments Results Result [facility] e Comments XR PELVIS <3 VW 2021-02-22 No acute osseous Un iversity of 8 abnormality.XR [facility] 11:42:16 PELVIS <3 VW Branch INDICATION: Pelvic pain- Left ?adductor muscle/tendon injury. R/O Avulsioninjury COMPARISON: None FINDINGS: No displaced fracture or dislocation. No sacroiliac or pubic symphysealdiastasis . [facility], Radiant Results Inft User - 03/11/2021 6:43 AM CDTXR PELVIS <3 VWINDICATION: Pelvic pain- Left adductor muscle/tendon injury. R/O Avulsioninjury COMPARISON: NoneFINDINGS:No displaced fracture or dislocation. No sacroiliac or pubic symphysealdiastasis .IMPRESSIONNo acute osseous abnormality. TESTOSTERONE, FREE/TOTAL [facility] 2020-11-30 11:50:04 Test Item Value Reference Range Interpretation Comme nts TESTOSTERONE LEVEL (test code See_Comment [Automated message] The = 2986-8) system which ge nerated this result transmit elisa reference range: 300 - 1, 080 NG/DL. The reference range was not used to interpret th is result as normal/abnormal . SEX HORMONE BINDING GLOBULIN See_Comment L [Automated message] The (test code = 76451-4) system which generated this result transmit elisa reference range: 16.5 - 5 5.9 NMOL/L. The reference range was not used to interpret th is result as normal/abnormal . CALC FREE TESTOSTERONE (test 270.0 PG/ML 47-244 H Unless Otherwise code = 2991-8) Indicated, Al l Testing Performed At: [facility], [address] [place] [address] Laboratory D irector: Mario Signer M.D. CLIA Number [id number] Cap Accreditation N o. Lab Interpretation (test code Abnormal = 40417-8) [id number] 09:56:07 Test Item Value Reference Range Interpretation Comments ESTRADIOL LEVEL (test <17.0 See_Comment Note: Estradiol code = 2243-4) sensitivity i s 17 PG/ML. If lower levels of quantitation are necessary, cons ider ultrasensitive estradiol by LC -MS/MS. Unless Oth erwise Indicated, All Testing Performed At: [facility], [address] [place] [address] Laboratory Di tawanna: Mario austin M.D. CLIA Number [id number] Cap Accreditati on No. [Auto mated message] The sy stem which generated this result transmitted ref erence range: <=60.7 P G/ML. The reference range was not used to interpr et this result as jeromy l/abnormal. [facility] [id number] 09:56:07 Test Item Value Reference Range Interpretation Comments PROLACTIN (test See_Comment NOTE: Me thodology is Mia code = 2842-3) Diogenes Electro chemiluminescence Immunoassay (E CLIA). Values obtained with d ifferent assays/manufact urers cannot be used interchang eably. Results should not be u sed as sole basis to establ elmo the presence or abs ence of malignancy. Unless Otherwise Indic ated, All Testing Perform ed At: [facility], [address] [place] [address] 7875 [id number] Laboratory Dire ctor: Mario Singer M.D. CLIA Number [id number] Cap Accreditation N o. [id number] [Automated mess age] The system which generated this result transmitted ref erence range: 4.0 - 26.0 NG/M L. The reference range was not u sed to interpret this result as normal/abnormal. [facility] [id number] 08:26:34 Test Item Value Reference Range Interpretation Comments CHOLESTEROL (test code See_Comment [Aut omated message] = 2092-3) The system [employer] generated this result transmitted ref erence range: <200 MG/ DL. The reference range was not used to int erpret this result as normal/abnormal . TRIGLYCERIDES (test See_Comment [Automa elisa message] code = 9561-8) The system [employer] generated this result transmitted ref erence range: <150 MG/ DL. The reference range was not used to int erpret this result as normal/abnormal . HDL CHOLESTEROL (test See_Comment L [Auto mated message] code = 2895-9) The system [employer] generated this result transmitted ref erence range: >39 MG/D L. The reference range was not used to int erpret this result as normal/abnormal . LDL CHOLESTEROL See_Comment NOTE: CALCU LATED LDL CALCULATED (test code = [place] [address]-2) LUIS FERNANDO-SMITH METHOD WHICHINCLUDES ADJUSTABLE TRIGLYCERIDE:VL DL CHOLESTEROL RAT IO.THIS FACTOR VARIES B Y MEASURED TRIGLY CERIDE AND NON-HDLCHOL ESTEROL CONCENTRATIONS WITH INCREASED CALCU LATED LDL SEENIN HIGH ER TRIGLYCERIDE OR LOWER NON-HDL SPECIME NS. FOR MOREINFORMATION , SEE CLIENT ANNOUNCE MENT AT [email or web address] [Automated mess age] The system whic h generated this result transmitted ref erence range: <100 MG/ DL. The reference range was not used to int erpret this result as normal/abnormal . LDL/HDL RATIO, SERUM See_Comment Unless (test code = 55101-6) Otherw ise Indicated, All Testing Per formed At: [facility], [address] [facility] [place] [address] Laboratory Dire ctor: Mario austin M.D. CLIA Num lizzie [id number] Cap Accreditation [place] o. [id number] [Auto mated message] The sy stem which generated this result transmit elisa reference range : <3.55 RATIO. The refe rence range was not u sed to interpret this result as normal/abnor mal. Lab Interpretation Abnormal (test code = 44996-9) [facility] CenterCOMPREHENSIVE METABOLIC [id number] 08:26:34 Test Item Value Reference Range Interpretation Comments GLUCOSE (test code = See_Comment [Autom ated message] The 2345-7) system which ge nerated this result tra nsmitted reference range : 70 - 99 MG/DL. The refe rence range was not u sed to interpret this result as normal/abnormal . BLOOD UREA NITROGEN See_Comment [Automa elisa message] The (test code = 3091-6) system which generated this result tra nsmitted reference range : 6 - 20 MG/DL. The refe rence range was not u sed to interpret this result as normal/abnormal . CREATININE (test code = See_Comment [Au tomated message] The 2160-0) system which ge nerated this result tra nsmitted reference range : 0.80 - 1.40 MG/DL. The reference range was not used to interpr et this result as normal/abnormal . EGFR AA (test code = See_Comment [Autom ated message] The 26042-1) system which ge nerated this result tra nsmitted reference range : >60 ML/MIN/1.73. Th e reference range was not used to interpr et this result as normal/abnormal . EGFR (test code = See_Comment [Automate d message] The 71859-1) system which ge nerated this result tra nsmitted reference range : >60 ML/MIN/1.73. Th e reference range was not used to interpr et this result as normal/abnormal . BUN/CREAT RATIO (test See_Comment [Auto mated message] The code = 3097-3) system which generated this result tra nsmitted reference range : 6 - 28 RATIO. The refe rence range was not u sed to interpret this result as normal/abnormal . SODIUM (test code = See_Comment [Automa elisa message] The 2951-2) system which ge nerated this result tra nsmitted reference range : 133 - 146 MEQ/L. The reference range was not u sed to interpret this result as normal/abnormal . POTASSIUM (test code = See_Comment [Aut omated message] The 2823-3) system which ge nerated this result tra nsmitted reference range : 3.5 - 5.4 MEQ/L. The reference range was not u sed to interpret this result as normal/abnormal . CHLORIDE (test code = See_Comment [Auto mated message] The 2074-0) system which ge nerated this result tra nsmitted reference range : 95 - 107 MEQ/L. The reference range was not u sed to interpret this result as normal/abnormal . CO2 (test code = See_Comment [Automated message] The 8) system which ge nerated this result tra nsmitted reference range : 19 - 31 MEQ/L. The refe rence range was not u sed to interpret this result as normal/abnormal . CALCIUM (test code = See_Comment [Autom ated message] The 22268-4) system which ge nerated this result tra nsmitted reference range : 8.5 - 10.5 MG/DL. The reference range was not used to interpr et this result as normal/abnormal . PROTEIN TOTAL (test See_Comment [Automa elisa message] The code = 2885-2) system which generated this result tra nsmitted reference range : 6.1 - 8.3 G/DL. The r eference range was not u sed to interpret this result as normal/abnormal . ALBUMIN (test code = See_Comment [Autom ated message] The 53400-3) system which ge nerated this result tra nsmitted reference range : 3.5 - 5.2 G/DL. The r eference range was not u sed to interpret this result as normal/abnormal . GLOBULINS, SERUM, TOTAL See_Comment [Au tomated message] The (test code = 67915-1) system which generated this result tra nsmitted reference range : 1.9 - 3.7 G/DL. The r eference range was not u sed to interpret this result as normal/abnormal . A/G RATIO (test code = See_Comment [Aut omated message] The ) system which ge nerated this result tra nsmitted reference range : 1.0 - 2.6 RATIO. The reference range was not u sed to interpret this result as normal/abnormal . BILIRUBIN TOTAL (test See_Comment [Auto mated message] The code = 1974-) system which generated this result tra nsmitted reference range : <=1.2 MG/DL. The refe rence range was not u sed to interpret this result as normal/abnormal . ALKALINE PHOSPHATASE 68 U/L 40-112 (test code = 6768-6) AST (SGOT) (test code = 27 U/L 9-50 1920-8) ALT (SGPT) (test code = 37 U/L 5-50 Unless 174-) Otherwise Indic ated, All Testing Perform ed At: [facility], [address] [place] [address] Zipper Slide Attacher: Lizbeth Camejo [id number] [place]. [id number] [facility] [id number] 07:07:13 Test Item Value Reference Range Interpretation Comments HEMATOCRIT (test code 49.8 % 40-51 NOTE NEW REFERENCE = 29503-3) RANGES FOR MULT IPLE COMPONENTS OF COMPLETEBLOOD C OUNT EFFECTIVE 021. THE ANALYTIC METHOD IS NOTCHANGED. PLE ASE REVIEW PATIENT RESULTS AND REFERENCE INTERVALSCAREFU LLY. FOR MORE INFORMATIO N, CONTACT YOUR ACCOUNT EX ECUTIVEOR SEE URL [email or web address] Unless Oth erwise Indicated, All Testing Performed At: [facility], [address] [place] [address] Laboratory D irector: Lizbeth CamejoIA Number [id number] [place]. [id number] [facility] [id number] 11:21:51 Test Item Value Reference Range Interpretation Comments HEMATOCRIT (test code = 51.0 % 38-50 H Unless 31320-5) Otherwise Indic ated, All Testing Per formed At: [facility], [address] [place] [address] Laboratory Dire ctor: Mario austin M.D. CLIA Num lizzie [id number] Cap Accreditation N o. [id number] Lab Interpretation Abnormal (test code = 70284-7) [facility] CenterCOMPREHENSIVE METABOLIC [id number] 09:54:12 Test Item Value Reference Range Interpretation Comments GLUCOSE (test code = See_Comment [Autom ated message] 2345-7) The system [employer] generated this result transmitted ref erence range: 70 - 99 MG/DL. The reference r kathleen was not used to interpret this result as normal/abnor mal. BLOOD UREA NITROGEN See_Comment H [Automa elisa message] (test code = 3091-6) The s tem which generated this result transmitted ref erence range: 6 - 20 M G/DL. The reference r kathleen was not used to interpret this result as normal/abnor mal. CREATININE (test code = See_Comment [Au tomated message] 2160-0) The system [employer] generated this result transmitted ref erence range: 0.80 - 1 .40 MG/DL. The refe rence range was not u sed to interpret this result as normal/abnor mal. EGFR AA (test code = See_Comment [Autom ated message] 25324-8) The system [employer] generated this result transmitted ref erence range: >60 ML/MIN/1.73. Th e reference range was not used to int erpret this result as normal/abnormal . EGFR (test code = See_Comment [Automate d message] 60150-2) The system [employer] generated this result transmitted ref erence range: >60 ML/MIN/1.73. Th e reference range was not used to int erpret this result as normal/abnormal . BUN/CREAT RATIO (test See_Comment [Auto mated message] code = 3097-3) The system [employer] generated this result transmitted ref erence range: 6 - 28 R ATIO. The reference r kathleen was not used to interpret this result as normal/abnor mal. SODIUM (test code = See_Comment [Automa elisa message] 2951-2) The system [facility] generated this result transmitted ref erence range: 133 - 14 6 MEQ/L. The refe rence range was not u sed to interpret this result as normal/abnor mal. POTASSIUM (test code = See_Comment [Aut omated message] 2823-3) The system [facility] generated this result transmitted ref erence range: 3.5 - 5. 4 MEQ/L. The refe rence range was not u sed to interpret this result as normal/abnor mal. CHLORIDE (test code = See_Comment [Auto mated message] 3665-0) The system [facility] generated this result transmitted ref erence range: 95 - 107 MEQ/L. The reference r kathleen was not used to interpret this result as normal/abnor mal. CO2 (test code = See_Comment [Automated message] 1963-8) The system [employer] generated this result transmitted ref erence range: 19 - 31 MEQ/L. The reference r kathleen was not used to interpret this result as normal/abnor mal. CALCIUM (test code = See_Comment [Autom ated message] 99519-1) The system [facility] [employer] generated this result transmitted ref erence range: 8.5 - 10 .5 MG/DL. The refe rence range was not u sed to interpret this result as normal/abnor mal. PROTEIN TOTAL (test See_Comment [Automa elisa message] code = 2885-2) The system [facility] generated this result transmitted ref erence range: 6.1 - 8. 3 G/DL. The reference r kathleen was not used to interpret this result as normal/abnor mal. ALBUMIN (test code = See_Comment [Autom ated message] 54605-9) The system [facility] [employer] generated this result transmitted ref erence range: 3.5 - 5. 2 G/DL. The reference r kathleen was not used to interpret this result as normal/abnor mal. GLOBULINS, SERUM, TOTAL See_Comment [Au tomated message] (test code = 12539-3) The sy stem which generated this result transmitted ref erence range: 1.9 - 3. 7 G/DL. The reference r kathleen was not used to interpret this result as normal/abnor mal. A/G RATIO (test code = See_Comment [Aut omated message] 1759-0) The system [employer] generated this result transmitted ref erence range: 1.0 - 2. 6 RATIO. The refe rence range was not u sed to interpret this result as normal/abnor mal. BILIRUBIN TOTAL (test See_Comment [Auto mated message] code = 1974-2) The system [employer] generated this result transmitted ref erence range: <=1.2 MG /DL. The reference r kathleen was not used to interpret this result as normal/abnor mal. ALKALINE PHOSPHATASE 81 U/L 40-112 (test code = 6768-6) AST (SGOT) (test code = 20 U/L 9-50 1920-8) ALT (SGPT) (test code = 28 U/L 5-50 Unless 1744-2) Otherwise Indic ated, All Testing Per formed At: [facility], [address] [place] [address] Laboratory Dire ctor: Mario austin M.D. CLIA Num lizzie [id number] [place] o. [id number] Lab Interpretation Abnormal (test code = 82474-6) [facility] CenterLIPID [id number] 09:54:12 Test Item Value Reference Range Interpretation Comments CHOLESTEROL (test code See_Comment [Aut omated message] = 2092-3) The system [facility] [employer] generated this result transmitted ref erence range: <200 MG/ DL. The reference range was not used to int erpret this result as normal/abnormal . TRIGLYCERIDES (test See_Comment H [Automa elisa message] code = 2571-8) The system [employer] generated this result transmitted ref erence range: <150 MG/ DL. The reference range was not used to int erpret this result as normal/abnormal . HDL CHOLESTEROL (test See_Comment L [Auto mated message] code = 2084-9) The system [employer] generated this result transmitted ref erence range: >39 MG/D L. The reference range was not used to int erpret this result as normal/abnormal . LDL CHOLESTEROL See_Comment NOTE: CALCU LATED LDL CALCULATED (test code = [place] [address]-8) LUIS FERNANDO-SARAH METHOD WHICHINCLUDES ADJUSTABLE TRIGLYCERIDE:VL DL CHOLESTEROL RAT IO.THIS FACTOR VARIES B Y MEASURED TRIGLY CERIDE AND NON-HDLCHOL ESTEROL CONCENTRATIONS WITH INCREASED CALCU LATED LDL SEENIN HIGH ER TRIGLYCERIDE OR LOWER NON-HDL SPECIME NS. FOR MOREINFORMATION , SEE CLIENT ANNOUNCE MENT AT [email or web address] [Automated mess age] The system [employer] generated this result transmitted ref erence range: <100 MG/ DL. The reference range was not used to int erpret this result as normal/abnormal . LDL/HDL RATIO, SERUM See_Comment Unless (test code = 69722-5) Otherw ise Indicated, All Testing Per formed At: [facility], [address] [place] [address] Laboratory Dire ctor: Mario austin M.D. CLIA Num lizzie [id number] Cap Accreditation N o. [id number] [Auto mated message] The sy stem which generated this result transmit elisa reference range : <3.55 RATIO. The refe rence range was not u sed to interpret this result as normal/abnor mal. Lab Interpretation Abnormal (test code = 85486-0) [facility]
[2021-12-12] MEDS ORDERED: IBUPROFEN 400 MG TAB ONE (21:42)
[2021-12-12 22:35] LABS: SARS-COV-2 RT PCR POSITIVE (NEGATIVE)
--- NOTE | 2021-12-12 22:38 | ER ---
Nurse's Notes [facility] Name: Scott Alvarez Age: 36 yrs Sex: Male : 1985 Arrival Date: 12/12/2021 Time: 21:28 Bed Waiting Private MD: Diagnosis: Coronavirus infection, unspecified Presentation: 12/12 21:36 Chief complaint: Patient states: it's hard for him to keep his eyes open, vision is sm5 blurry, hurts all over, sore throat and coughing up green stuff. Coronavirus screen: Vaccine status: Patient reports being unvaccinated. Ebola Screen: No symptoms or risks identified at this time. Initial Sepsis Screen: Does the patient meet any 2 criteria? HR > 90 bpm. Does the patient have a suspected source of infection? No. Patient's initial sepsis screen is negative. Risk Assessment: Do you want to hurt yourself or someone else? Patient reports no desire to harm self or others. Onset of symptoms was December 12, 2021. 21:36 Method Of Arrival: Ambulatory [facility] 21:36 Acuity: CHANEL 4 5 Triage Assessment: 21:39 General: Appears in no apparent distress. Behavior is appropriate for age. Pain: [facility] Complains of pain in generalized. EENT: Reports blurred vision pain in throat. Neuro: No deficits noted. Level of Consciousness is awake, alert, Oriented to person, place, time, situation. Cardiovascular: No deficits noted. Respiratory: Reports cough that is productive, Airway is patent Trachea midline Respiratory effort is even. Historical: - Allergies: 21:38 No Known Allergies; 5 - PMHx: 21:38 blood disorder; [facility] - Immunization history:: Client reports having NOT received the Covid vaccine. - Social history:: Smoking status: Patient denies any tobacco usage or history of. Vital Signs: 21:36 BP 150 / 103; Pulse 108; Resp 20; Temp 99.8; Pulse Ox 99% on R/A; Weight 138.35 kg; 5 Height 5 ft. 11 in. (180.34 cm); Pain 9/10; 21:36 Body Mass Index 42.54 (138.35 kg, 180.34 cm) [facility] ED Course: 21:28 Patient arrived in ED. 21:38 Triage completed. [facility] 21:41 Esperanza Guadarrama FNP-C is [facility]. prakash 21:41 Sancho Melara MD is Attending Physician. kb Administered Medications: 21:43 Drug: Ibuprofen 800 mg Route: PO; sm5 Outcome: 22:37 Discharge ordered by . kb 22:58 Patient left the ED. kb Signatures: Esperanza Guadarrama FNP-C FNP-Collette Andrew Sarah, RN RN sm5 Corrections: (The following items were deleted from the chart) 21:39 21:36 Pulse 108bpm; Resp 20bpm; Pulse Ox 99% RA; Temp 99.8F; 138.35 kg; Height 5 ft. 11 sm5 in.; BMI: 42.5; Pain 9/10; sm5
--- NOTE | 2021-12-12 22:38 | EDPHYS ---
Physician Documentation [facility] Name: Scott Alvarez Age: 36 yrs Sex: Male : 1985 Arrival Date: 12/12/2021 Time: 21:28 Bed Waiting Private MD: ED Physician Sancho Melara HPI: 12/12 21:52 This 36 yrs old Male presents to ER via Ambulatory with complaints of Fever, General kb Weakness, Dizziness, Vision Problem. 21:52 The patient or guardian reports cough, that is intermittent, described as mild, flu kb symptoms, low-grade fever, myalgias. Onset: The symptoms/episode began/occurred today. Severity of symptoms: At their worst the symptoms were moderate, in the emergency department the symptoms are unchanged. Modifying factors: The symptoms are alleviated by nothing, the symptoms are aggravated by nothing. Associated signs and symptoms: Pertinent positives: fever, sore throat, Pertinent negatives: chest pain, diarrhea, ear ache, nausea, rhinorrhea, vomiting. The patient has not experienced similar symptoms in the past. The patient has not recently seen a physician. "I feel like shit." Pt c/o cough, sore throat, headache, difficulty keeping eyes open, fever, chills, bodyaches that started today. Historical: - Allergies: 21:38 No Known Allergies; sm5 - PMHx: 21:38 blood disorder; sm5 - Immunization history:: Client reports having NOT received the Covid vaccine. - Social history:: Smoking status: Patient denies any tobacco usage or history of. ROS: 21:51 Abdomen/GI: Negative for abdominal pain, nausea, vomiting, diarrhea, and constipation. kb 21:51 Constitutional: Positive for body aches, chills, fatigue, fever, malaise. 21:51 Eyes: Positive for "hard to keep eyes open". 21:51 ENT: Positive for sore throat. 21:51 Respiratory: Positive for cough, Negative for dyspnea on exertion, hemoptysis, orthopnea, pleurisy, shortness of breath, sputum production, wheezing. 21:51 Neuro: Positive for headache. 21:51 All other systems are negative. Exam: 21:51 Constitutional: This is a well developed, well nourished patient who is awake, alert, kb and in no acute distress. Head/Face: Normocephalic, atraumatic. ENT: Moist Mucous membranes Cardiovascular: Regular rate and rhythm with a normal S1 and S2. No gallops, murmurs, or rubs. No pulse deficits. Respiratory: Respirations even and unlabored. No increased work of breathing. Talking in full sentences Skin: Warm, dry with normal turgor. Normal color. MS/ Extremity: Pulses equal, no cyanosis. Neurovascular intact. Full, normal range of motion. Neuro: Awake and alert, GCS 15, oriented to person, place, time, and situation. Moves all extremities. Normal gait. Psych: Awake, alert, with orientation to person, place and time. Behavior, mood, and affect are within normal limits. Vital Signs: 21:36 BP 150 / 103; Pulse 108; Resp 20; Temp 99.8; Pulse Ox 99% on R/A; Weight 138.35 kg; sm5 Height 5 ft. 11 in. (180.34 cm); Pain 9/10; 21:36 Body Mass Index 42.54 (138.35 kg, 180.34 cm) 5 MDM: 21:41 Patient medically screened. kb 21:50 Data reviewed: vital signs, nurses notes. Data interpreted: Pulse oximetry: on room air kb is 99 %. Interpretation: normal. 22:37 Counseling: I had a detailed discussion with the patient and/or guardian regarding: the kb historical points, exam findings, and any diagnostic results supporting the discharge/admit diagnosis, lab results, the need for outpatient follow up, a family practitioner, to return to the emergency department if symptoms worsen or persist or if there are any questions or concerns that arise at home. 12/12 21:41 Order name: Strep; Complete Time: 22:00 kb 12/12 21:41 Order name: COVID-19/FLU A+B (Document "Date of Onset" if Symptomatic); Complete Time: kb 22:36 12/12 22:01 Order name: Throat Culture EDMS Administered Medications: 21:43 Drug: Ibuprofen 800 mg Route: PO; 5 Disposition: 12/13 00:07 Co-signature as Attending Physician, Sancho Melara MD. rn 00:07 I agree with the assessment and plan of care. Attestation: The patient's history, exam rn findings, diagnostics, and a summary of any interventions or procedures was reviewed in detail with Esperanza JACKSON. Disposition Summary: 12/12/21 22:37 Discharge Ordered Location: Home kb Condition: Stable kb Diagnosis - Coronavirus infection, unspecified kb Followup: kb - With: Emergency Department - When: As needed - Reason: Worsening of condition Followup: kb - With: Private Physician - When: 2 - 3 days - Reason: Recheck today's complaints, Continuance of care, Re-evaluation by your physician Discharge Instructions: - Discharge Summary Sheet kb - Viral Respiratory Infection, Wfoq-Ri-Dity kb - COVID-19 kb Forms: - Medication Reconciliation Form kb - Thank You Letter kb - Antibiotic Education kb - Prescription Opioid Use kb Signatures: Dispatcher [employer] EDMS Esperanza Guadarrama, DIANAC JACKET PREPARER-Sancho Sheehan MD MD rn Mazur, Sarah, RN RN sm5
[2021-12-12 23:27] VITALS: BP 150/103; TEMP 99.8; O2SAT 99
== END 2021-12-12 22:58 | disposition home or self-care (01) ==
LOC: ER 21:23
DX: U07.1 COVID-19 (principal)
CPT/HCPCS: 0240U; 87070; 87081; 99282

== ENCOUNTER 2022-08-25 18:16 | Emergency (ER) | payer OTHER, SELFPAY ==
--- OUTSIDE RECORDS SUMMARY | 2022-08-25 18:20 | XMS REPORT | Continuity of Care Document ---
:1985 [facility] t Address [address] [place] [address] Care Team Providers Name Role Phone Asked, No Pcp Primary Care Physician Unavailable Lay Garcia MD Attending Clinician Avelino KONG, Armani Woods Attending Clinician Yudi Leon Attending Clinician Lab, Adc Fam Pob I Attending Clinician Unavailable Tamara Monroe Attending Clinician TAMARA BATRES Attending Clinician Unavailable Doctor Unassigned, [place] Attending Clinician Unavailable Lab, Pcp Covid Attending Clinician Unavailable JASMEET GOMEZ Attending Clinician Unavailable Payers Payer Name Policy Type Policy Number Effective Date Expiration Date S [facility] [id number] 2019 00:00:00 Problems Condition Condition Condition Status Onset Resolution Last Treating Co mments Source Name Details Category Date Date Treatment Clinician Date Abdominal Abdominal Disease Active Met [facility] pain pain 04-21 00:00: Hospita 00 l Hypogonadi Hypogonadi Disease Active 2012-11 [facility] sm male sm male 01-02 College 00:00: of 00 Medicin e Encounter Encounter Disease Active 2012-11 [place] for for 01-02 College long-term long-term 00:00: of (current) (current) 00 Medi yesy use of use of e other other medication medication s s No known No known Disease Unive rs active active ity of problems problems [facility] Allergies, Adverse Reactions, Alerts Allergy Allergy Status Severity Reaction(s) Onset Inactive Treating Comm ents Source Name Type Date Date Clinician NO KNOWN Drug Active Univers ALLERGIE Class ity of S [facility] Social History Social Habit Start Date Stop Date Quantity Comments Source History of Chews Tobacco [facility] Anand ege of tobacco use Medicine Tobacco Comment 1/2 can per day [facility] or [facility] Exposure to Unable to assess Univers ity of SARS-CoV-2 [facility] (event) [place] Tobacco use and 2021-02-06 2021-02-06 Current user [facility] exposure 00:00:00 00:00:00 Medicine Alcohol intake 2020-04-21 2020-04-21 Ex-drinker [facility] 00:00:00 00:00:00 (finding) Sex [birth year] [facility] 00:00:00 00:00:00 Smoking Status Start Date Stop Date Source Unknown if ever smoked [facility] Never smoker [facility] o f Medicine Medications Ordered Filled Start Stop Current Ordering Indication Dosage Frequency Signature Comments Components Source Medication Medication Date Date Medication? Clinician (SIG) Name Name methocarbam No 500mg 500 mg, U nivers oL 03-11 Oral, ity of (ROBAXIN) 13:45: 12:43 ONCE, 1 [place] tablet 500 [place] :00 dose, Sun Medi mayo mg 03/11/21 at Branch 0845, Routine HYDROmorpho 2020- No 2mg 2 mg, Slow Univers ne [...] 03/11/21 at Branch 0715, Routine methocarbam Yes [id number] 750mg Take 1 Univers oL 750 mg 4-18 tablet by ity o f tablet 00:00: mouth [place] 00 every 6 Medical (six) Branch hours as needed (MUSCLLE SPASM). HYDROcodone 2020- No 4647 1{tbl} Take 1 U nivers -acetaminop 4-18 04-26 tablet by it y of hen (NORCO) 00:00: 04:59 [place] 10-325 mg 00 :00 every 6 Medical tablet (six) Branch hours as needed for Pain (scale 7-10) for up to 7 days. Indication s: acute pain metformin Yes 1000mg Take 1 [facility] [...] weekly. e tamoxifen Yes 10mg Take 1 [facility] (NOLVADEX) 1-06 Tablet by Anand ege 10 MG 00:00: mouth 2 of tablet 00 times Medicin daily as e needed for Other (nipple sensitivit y). finasteride 2020- No 5mg Take 1 [place] (PROSCAR) 5 1-06 05-07 Tablet by Co llege MG tablet 00:00: 04:59 mouth of 00 :00 daily for Medicin 120 days. e modafinil 2020- No 100mg Take 1 [facility] (PROVIGIL) 11-29 Tablet by Col lege 100 MG 00:00: 04:59 mouth of tablet 00 :00 every 48 Medicin hours for e 120 days. finasteride 2020- No 5mg Take 1 [place] (PROSCAR) 5 11-29 Tablet by Co llege MG tablet 00:00: 04:59 mouth of 00 :00 daily for Medicin 120 days. e modafinil 2020- No 100mg Take 1 [facility] (PROVIGIL) 11-29 Tablet by Col lege 100 MG 00:00: 04:59 mouth of tablet 00 :00 every 48 Medicin hours for e 120 days. finasteride 2020- No 5mg Take 1 [place] (PROSCAR) 5 11-29 Tablet by Co llege MG tablet 00:00: 00:00 mouth of 00 :00 daily for Medicin 120 days. e metformin 2020- No 1000mg Take 1 Tab [facility] (GLUCOPHAGE 08-03 by mouth 2 C ollege [...] phentermine 2020-0 Yes 15mg Take 1 Cap [facility] 15 MG 5-20 by mouth College capsule 00:00: every of 00 morning. Medicin e metformin 2020-0 Yes 1000mg Take 1 Tab [facility] (GLUCOPHAGE 5-20 by mouth 2 Co llege ) 1000 MG 00:00: times of tablet 00 daily Medicin (with e meals). anastrozole 2020-0 Yes 1mg Take 1 Tab [facility] (ARIMIDEX) 5-20 by mouth 2 Col lege 1 MG tablet 00:00: times of 00 weekly. Medicin e tamoxifen 2020-0 Yes 10mg Take 1 Tab [facility] (NOLVADEX) 5-20 by mouth 2 Col lege 10 MG 00:00: times of tablet 00 daily as Medicin needed for e Other (nipple sensitivit y). phentermine 2020-0 Yes 15mg Take 1 Cap [facility] 15 MG 5-20 by mouth College capsule 00:00: every of 00 morning. Medicin e phentermine 2020-0 Yes 15mg Take 1 Cap [facility] 15 MG 5-20 by mouth College capsule 00:00: every of 00 morning. Medicin e phentermine 2020-0 Yes TK ONE C Me thodi 15 MG 5-[address] capsule 00:00: Hospita 00 l tamoxifen 2020-0 Yes TK 1 T PO Met hodi (NOLVADEX) 5-[address] 10 MG chemo 00:00: NIPPLE Hosp nancy tablet 00 SENSITIVIT l Y anastrozole 2020-0 Yes 1mg Take 1 mg M ethodi (ARIMIDEX) 5-[address] 1 mg chemo 00:00: Hospita tablet 00 l metFORMIN 2020-0 Yes 1000mg Take 1,000 [facility] (GLUCOPHAGE 5-[address] ) 1,000 mg 00:00: mouth. Hospi ta tablet 00 l Chorionic 2015-11 Yes 1500U Inject [facility] Gonadotropi 2-15 1,500 College n (NOVAREL[place] [address] UN[place] 00 the skin Medi yesy injection every 7 e days. Chorionic 2015-11 Yes 1500U Inject [facility] Gonadotropi 2-15 1,500 College n (NOVAREL) [place] [address] UN[place] 00 the skin Medi yesy injection every 7 e days. Chorionic 2015-11 Yes 1500U Inject [facility] Gonadotropi 2-15 1,500 College n (NOVAREL) [place] [address] UNITS 00 the skin Medi yesy injection every 7 e days. testosteron 2015-11 Yes Inject 1.0 [facility] e cypionate 2-14 mL into Colle ge (DEPOTESTOT 00:00: the muscle of ERONE 00 twice Medicin CYPIONATE) weekly e 200 MG/ML injection testosteron 2015-11 Yes Inject 1.0 [facility] e cypionate 2-14 mL into Colle ge (DEPOTESTOT 00:00: the muscle of ERONE 00 twice Medicin CYPIONATE) weekly e 200 MG/ML injection testosteron 2015-11 Yes Inject 1.0 [facility] e cypionate 2-14 mL into Colle ge (DEPOTESTOT 00:00: the muscle of ERONE 00 twice Medicin CYPIONATE) weekly e 200 MG/ML injection testosteron 2015-11 Yes Inject 1.0 Methodi e cypionate 2-[address] (DEPOTESTOT 00:00: the muscle Hospita ERONE 00 twice l CYPIONATE) weekly 200 mg/mL injection anastrozole 2015-11- No Take 1 [place] (ARIMIDEX) 01-07 05-20 tablet by Col lege 1 MG tablet 00:00: 00:00 mouth of 00 :00 twice Medicin weekly e tamoxifen 2015-11- No 20mg Take 1 Tab [facility] (NOLVADEX) 01-07 05-20 by mouth Anand ege 20 MG 00:00: 00:00 two times of tablet 00 :00 daily. Medicin e Syringe/Nee 2014-0 Yes Use as [facility] dle, Disp, 7-28 directed Colle ge (SYRINGE 00:00: of 3CC/23GX1") 00 Medicin 23G X 1" 3 e ML MISC Syringe/Nee 2014-0 Yes Use as [place] dle, Disp, 7-28 directed Colle ge (SYRINGE 00:00: of 3CC/23GX1") 00 Medicin 23G X 1" 3 e ML MISC Syringe/Nee 2014-0 Yes Use as [place] dle, Disp, 7-28 directed Colle ge (SYRINGE 00:00: of 3CC/23GX1") 00 Medicin 23G X 1" 3 e ML MISC minocycline 2015-0 Yes 100mg Take 1 Cap [facility] (MINOCIN, 2-12 by mouth Colleg e DYNACIN) 00:00: two times of 100 MG 00 daily. Medicin capsule e minocycline 2015-0 Yes 100mg Take 1 Cap [facility] (MINOCIN, 2-12 by mouth Colleg e DYNACIN) 00:00: two times of 100 MG 00 daily. Medicin capsule e minocycline 2015-0 Yes 100mg Take 1 Cap [facility] (MINOCIN, 2-12 by mouth Colleg e DYNACIN) [...] ts Source Name Name Influenza 2016-11-05 Completed [facility] Intradermal 00:00:00 of Medicine Influenza 2016-11-05 Completed [facility] Intradermal 00:00:00 of Medicine Influenza 2016-11-05 Completed [facility] Intradermal 00:00:00 of Medicine Vital Signs Vital Name Observation Time Observation Value Comments Source Systolic blood 2021-03-11 12:00:00 141 mm[Hg] [facility] Diastolic blood 2021-03-11 12:00:00 93 mm[Hg] [facility] Heart rate 2021-03-11 12:00:00 111 /min [facility] Respiratory rate 2021-03-11 12:00:00 20 /min [facility] Oxygen saturation in 2021-03-11 12:00:00 95 /min [facility] Arterial blood by [facility] Pulse oximetry Branch Body temperature 2021-03-11 09:55:00 35.94 Ashly [facility] Body height 2021-03-11 09:55:00 180.3 cm [facility] Body weight 2021-03-11 09:55:00 124.739 kg [facility] BMI 2021-03-11 09:55:00 38.35 kg/m2 [facility] Systolic blood 2021-02-06 22:07:00 124 mm[Hg] [facility] pressure Medicine Diastolic blood 2021-02-06 22:07:00 74 mm[Hg] [facility] Medicine Heart rate 2021-02-06 22:07:00 75 /min [facility] C ollege of Medicine Body height 2021-02-06 22:07:00 180.3 cm [facility] C ollege of Medicine Body weight 2021-02-06 22:07:00 128.822 kg [facility] C ollege of Medicine BMI 2021-02-06 22:07:00 39.61 kg/m2 [facility] C ollege of Medicine Systolic blood 2020-11-30 00:25:00 143 mm[Hg] [facility] pressure Medicine Diastolic blood 2020-11-30 00:25:00 80 mm[Hg] [facility] pressure Medicine Heart rate 2020-11-30 00:25:00 93 /min [facility] C ollege of Medicine Body height 2020-11-30 00:25:00 154.9 cm [facility] ollege of Medicine Body weight 2020-11-30 00:25:00 129.275 kg [facility] C ollege of Medicine BMI 2020-11-30 00:25:00 53.85 kg/m2 [facility] ollege of Medicine Systolic blood 2020-11-30 00:25:00 143 mm[Hg] [facility] of pressure Medicine Diastolic blood 2020-11-30 00:25:00 80 mm[Hg] [facility] pressure Medicine Heart rate 2020-11-30 00:25:00 93 /min [facility] ollege of Medicine Body height 2020-11-30 00:25:00 154.9 cm [facility] ollege of Medicine Body weight 2020-11-30 00:25:00 129.275 kg [facility] ollege of Medicine BMI 2020-11-30 00:25:00 53.85 kg/m2 [facility] ollege of Medicine Systolic blood 2020-04-12 20:07:00 143 mm[Hg] [facility] pressure Medicine Diastolic blood 2020-04-12 20:07:00 90 mm[Hg] [facility] of pressure Medicine Heart rate 2020-04-12 20:07:00 89 /min [facility] ollege of Medicine Body temperature 2020-04-12 20:07:00 36.78 Ashly [facility] Body height 2020-04-12 20:07:00 154.9 cm [facility] C ollege of Medicine Body weight 2020-04-12 20:07:00 131.543 kg [facility] BMI 2020-04-12 20:07:00 54.80 kg/m2 [facility] Systolic blood 2020-04-12 20:07:00 143 mm[Hg] [facility] pressure [facility] Diastolic blood 2020-04-12 20:07:00 90 mm[Hg] [facility] pressure [facility] Heart rate 2020-04-12 20:07:00 89 /min [facility] Body temperature 2020-04-12 20:07:00 36.78 Ashly [facility] Body height 2020-04-12 20:07:00 154.9 cm [facility] Body weight 2020-04-12 20:07:00 131.543 kg [facility] BMI 2020-04-12 20:07:00 54.80 kg/m2 [facility] Procedures Procedure Date / Time Performing Clinician Source Performed XR PELVIS <3 VW 2021-03-11 11:27:53 Lay Garcia [facility] COMPREHENSIVE METABOLIC 2020-11-30 01:45:00 Armani You [facility] Medicine LIPID PANEL 2020-11-30 01:45:00 [facility] HEMATOCRIT 2020-11-30 01:45:00 [facility]ani [facility] ESTRADIOL 2020-11-30 01:45:00 Armani You [facility] PROLACTIN 2020-11-30 01:45:00 Avelino Armani [facility] TESTOSTERONE, FREE/TOTAL 2020-11-30 01:45:00 Armani You I [facility] Medicine COMPREHENSIVE METABOLIC 2020-04-12 21:18:00 Armani You [facility] Medicine LIPID PANEL 2020-04-12 21:18:00 [facility] H[facility] 2020-04-12 21:18:00 Avelino [facility] Plan of Care Planned Activity Planned Date Details Comments Source Future Scheduled 2022-07-24 HEPATITIS B VACCINES Met [facility]ist Test 02:50:45 (1 of 3 - 3-dose Hospital series) [code = HEPATITIS B VACCINES (1 of 3 - 3-dose series)] Future Scheduled 2022-07-24 COVID-19 VACCINE (#1) Me [facility]odist Test 02:50:45 [code = COVID-19 Hospital VACCINE (#1)] Future Scheduled 2022-07-24 Hepatitis C screening Me thodist Test 02:50:45 (procedure) [code = Hospital 508301024] Future Scheduled 2022-07-24 INFLUENZA VACCINE Method ist Test 02:50:45 [code = INFLUENZA Hospital VACCINE] Diagnostic Test 2021-02-20 TESTOSTERONE-TOTAL(UR Expected: Malvin Dewey Pending 00:00:00 O DEPT) [code = 02/20/2021 of Medicine 2986-8] (Approximate), Expires: 03/08/2021 Diagnostic Test 2021-02-20 SENSITIVE ESTRADIOL, Expected: [place] Pending 00:00:00 FEMALE(URO DEPT) 02/20/2021 of Medicine [code = 2243-4] (Approximate), Expires: 03/08/2021 Diagnostic Test 2021-02-20 PROLACTIN(URO DEPT) Expected: Aldo Dewey Pending 00:00:00 [code = 2842-3] 02/20/2021 of Medicine (Approximate), Expires: 03/08/2021 Diagnostic Test 2021-02-20 DHEA SULFATE(URO Expected: Albin avila Pending 00:00:00 DEPT) [code = 2191-5] 02/20/2021 of Med icine (Approximate), Expires: 03/08/2021 Diagnostic Test 2021-02-20 SHBG(URO DEPT) [code Expected: [facility] arnaud Dewey Pending 00:00:00 = 74046] 02/20/2021 of Medicine (Approximate), Expires: 03/08/2021 Diagnostic Test 2020-12-13 SENSITIVE Expected: Albin devi Pending 00:00:00 ESTRADIOL,MALE(URO 12/13/2020 of Medici ne DEPT) [code = 2243-4] (Approximate), Expires: 12/29/2020 Diagnostic Test 2020-12-13 PROLACTIN(URO DEPT) Expected: [employer] Pending 00:00:00 [code = 2842-3] 12/13/2020 of Medicine (Approximate), Expires: 12/29/2020 Future Scheduled COMPREHENSIVE Ordered: [facility] Col lege Test METABOLIC PANEL [code 02/06/2021 of Med icine = 27700-6] Future Scheduled LIPID PANEL [code = Ordered: [facility] Test 67678-2] 02/06/2021 of Medicine Future Scheduled HEMATOCRIT [code = Ordered: [employer] Test 4544-3] 02/06/2021 of Medicine Future Scheduled INSULIN LIKE GROWTH Ordered: [facility] or [place] Test FACTOR(IGF-1) [code = 02/06/2021 of Med icine 2484-4] Future Scheduled TETANUS SHOT (ADULT) [place] [facility] Test [code = TETANUS SHOT of Medi cine (ADULT)] Future Scheduled COVID-19 Vaccine (1) [place] [facility] Test [code = COVID-19 of Medicine Vaccine (1)] Future Scheduled BMI FOLLOW UP PLAN [employer] Test [code = BMI FOLLOW UP of Med icine PLAN] Future Scheduled FLU VACCINE > 6 [facility] C ollege Test MONTHS [code = FLU of Medici ne VACCINE > 6 MONTHS] Future Scheduled INSULIN LIKE GROWTH Ordered: [facility] or [place] Test FACTOR(IGF-1) [code = 04/12/2020 of Med icine 2484-4] Future Scheduled TETANUS SHOT (ADULT) [place] [facility] Test [code = TETANUS SHOT of Medi cine (ADULT)] Future Scheduled BMI FOLLOW UP PLAN [employer] Test [code = BMI FOLLOW UP of Med icine PLAN] Future Scheduled FLU VACCINE > 6 [facility] C ollege Test MONTHS [code = FLU of Medici ne VACCINE > 6 MONTHS] Future Scheduled COVID-19 Vaccine [facility] College Test Evaluation [code = of Medici ne COVID-19 Vaccine Evaluation] Future Scheduled TETANUS SHOT (ADULT) [place] [facility] Test [code = TETANUS SHOT of Medi cine (ADULT)] Future Scheduled BMI FOLLOW UP PLAN [employer] Test [code = BMI FOLLOW UP of Med icine PLAN] Future Scheduled FLU VACCINE > 6 [facility] C ollege Test MONTHS [code = FLU of Medici ne VACCINE > 6 MONTHS] Encounters Start End Encounter Admission Attending Care Care Encounter Source Date/Time Date/Time Type Type Clinicians Facility Department ID 2021-09-23 Emergency [facility] [id number] Univers 13:37:22 ity of [facility] 2021-03-11 2021-03-11 Emergency Radha [facility] [id number] Univers 04:48:00 09:04:00 Lay Heredia 350.1.13.10 ity [facility] 4.2.7.2.686 [facility] [id number] [facility] 084 Branch 2021-02-06 2021-02-06 Office SEAN You [id number] [facility] 16:43:07 18:05:44 Visit Armani I AMBULATOR [id number] College Y 0.2.7.2.686 of [id number] [facility] 300 e 2020-11-29 2020-11-29 Office SEAN You [id number] 16:50:38 17:00:38 Visit Armani I AMBULATOR [id number] Y 0.2.7.2.686 [id number] 2020-11-29 2020-11-29 Office SEAN You [id number] [facility] 16:50:38 17:00:38 Visit Armani I AMBULATOR 350.1.13.21 College Y 0.2.7.2.686 of [id number] [facility] 300 e 2020-06-30 2020-06-30 Outpatient R [facility] [id number] Univers 08:45:00 08:45:00 ity of [facility] 2020-06-30 2020-06-30 Outpatient R [facility] [id number] Univers 08:45:00 08:45:00 ity of [facility] 2020-06-10 2020-06-10 Telephone AGUILA [place] [id number] Univers 00:00:00 00:00:00 Yudi GRACE [id number] i ty [facility] 4.2.7.2.686 [facility] [id number] [address] 2020-06-10 2020-06-10 Telephone Yi AGUILA [id number] 00:00:00 00:00:00 Yudi MERRILLY 350.1.13.10 HOSPITAL 4.2.7.2.686 [id number] 2020-06-08 2020-06-08 Laboratory Lab, [facility] Fam Pob I [facility] [id number] Univers 10:48:07 11:08:07 Only Awa [facility] 350.1.13.10 ity of [place] 4.2.7.2.686 Rafael as Professio [id number] [address] Office Building [facility] 2020-06-08 2020-06-08 Laboratory Lab, [facility] [id number] 10:48:07 11:08:07 Only Fam Pob I Health 350.1.13.10 [place] 4.2.7.2.686 Professio [id number] [place] [address] Office Building [facility] 2020-06-08 2020-06-08 Outpatient R MORRIS [facility] [id number] Univers 10:00:00 10:00:00 TAMARA itmaribeth of [facility] 2020-06-08 2020-06-08 Letter Doctor AGUILA [id number] Univers 00:00:00 00:00:00 (Out) Unassigned, LESLY 350.1.13.10 ity of [place] [facility] 4.2.7.2.686 Rafael as [id number] [address] 2020-06-08 2020-06-08 Letter Lab, [facility] [id number] Univers 00:00:00 00:00:00 (Out) Covid Health 350.1.13.10 it y of [place] 4.2.7.2.686 Rafael as Professio [id number] [address] Office Building [facility] 2020-06-08 2020-06-08 Letter Doctor AGUILA [id number] 00:00:00 00:00:00 (Out) Unassigned, LESLY 350.1.13.10 [place] [facility] 4.2.7.2.686 [id number] 2020-06-08 2020-06-08 Letter Lab, Pcp [facility] [id number] 00:00:00 00:00:00 (Out) Covny Health 350.1.13.10 [place] 4.2.7.2.686 Professio [id number] nal 044 Office Building One 2020-04-21 2020-04-21 Outpatient ECHO, [facility] [id number] [place] 00:00:00 00:00:00 JASMEET [address] 2020-04-12 2020-04-12 Office SEAN You [id number] 14:49:16 16:18:21 Visit Armani I AMBULATOR 350.1.13.21 Y 0.2.7.2.686 [id number] 2020-04-12 2020-04-12 Office SEAN You [id number] [facility] 14:49:16 16:18:21 Visit Armani I AMBULATOR 350.1.13.21 College Y 0.2.7.2.686 of [id number] [facility] 300 e Results Test Description Test Time Test Comments Results Result [facility] e Comments XR PELVIS <3 VW 2021-02-22 No acute osseous Un iversity of 8 abnormality.XR [facility] 11:42:16 PELVIS <3 VW Branch INDICATION: Pelvic [...] L [Automated message] The (test code = 16478-0) system which generated this result transmit elisa reference range: 16.5 - 5 5.9 NMOL/L. The reference range was not used to interpret th is result as normal/abnormal . CALC FREE TESTOSTERONE (test 270.0 PG/ML 47-244 H Unless Otherwise Indicated, code = 2991-8) All Testing P erformed At: [facility], Located Within [facility], [address] [place], [place] [id number] 4 County Agent: Lizbeth Ferrari r [id number] [place] [id number] Lab Interpretation (test code Abnormal = 76355-8) [facility] [id number] 09:56:07 Test Item Value Reference Range Interpretation Comments ESTRADIOL LEVEL (test <17.0 See_Comment Note: Estradiol code = 2243-4) sensitivity i s 17 PG/ML. If lower levels of quantitation ar e necessary, cons ider ultrasensitive estradiol by LC-MS/MS. Un less Otherwise Indic ated, All Testing Perform ed At: [employer], [address] [place] [address] Laboratory Dire ctor: Arian FerrariIA Number [id number] Cap Accreditation [place]. [id number] [Automated mess age] The system which ge nerated this result tra nsmitted reference range : <=60.7 PG/ML. The refe rence range was not used to interpret this result as normal/abnormal . [facility] H[id number] 09:56:07 Test Item Value Reference Range Interpretation Comments PROLACTIN (test See_Comment NOTE: Metho dology is Mia code = 2842-3) Diogenes Electro chemiluminescence Immunoassay (EC HERNÁN). Values obtained with d ifferent assays/manufact urers cannot be used interchang eably. Results should not be u sed as sole basis to establ elmo the presence or absence of m alignancy. Unless Otherwis e Indicated, All Testing Perform ed At: [facility], [address] [facility], [facility] [place] [address] Laboratory Dire ctor: Mario Singer M.D. CLIA Number [id number] [facility] [place]. [id number] [A utomated message] The sy stem which generated this result transmitted ref erence range: 4.0 - 26.0 NG/M L. The reference range was not u sed to interpret this result as normal/abnormal. [facility] HospitalLIPID [id number] 08:26:34 Test Item Value Reference Range Interpretation Comments CHOLESTEROL (test code See_Comment [Aut omated message] = 2093-3) The system The [employer] generated this result transmitted ref erence range: <200 MG/ DL. The reference range was not used to int erpret this result as normal/abnormal . TRIGLYCERIDES (test See_Comment [Automa elisa message] code = 2571-8) The system [employer] generated this result transmitted ref erence range: <150 MG/ DL. The reference range was not used to int erpret this result as normal/abnormal . HDL CHOLESTEROL (test See_Comment L [Auto mated message] code = 2085-9) The system [employer] generated this result transmitted ref erence range: >39 MG/D L. The reference range was not used to int erpret this result as normal/abnormal . LDL CHOLESTEROL See_Comment NOTE: CALCU LATED LDL CALCULATED (test code = [place] [address]-4) LUIS FERNANDO-SMITH METHOD WHICHINCLUDES ADJUSTABLE TRIGLYCERIDE:VL DL CHOLESTEROL RAT IO.THIS FACTOR VARIES B Y MEASURED TRIGLY CERIDE AND NON-HDLCHOL ESTEROL CONCENTRATIONS WITH INCREASED CALCU LATED LDL SEENIN HIGH ER TRIGLYCERIDE OR LOWER NON-HDL SPECIME NS. FOR MOREINFORMATION , SEE CLIENT ANNOUNCE MENT AT [email or web address] [Aut omated message] The sy stem which generated this result transmit elisa reference range : <100 MG/DL. The refe rence range was not u sed to interpret this result as normal/abnor mal. LDL/HDL RATIO, SERUM See_Comment Unless Otherwise (test code = 33312-1) Indica elisa, All Testing Performed At: [facility], [address] [facility], [facility] [place] [address] Laborato ry Director: Mario Singer M.D. CLIA Number [id number] Cap Accreditation N o. [id number] [Autom ated message] The sy stem which generated this result transmit elisa reference range : <3.55 RATIO. The refe rence range was not u sed to interpret this result as normal/abnor mal. Lab Interpretation Abnormal (test code = 55950-9) [facility] HospitalCOMPREHENSIVE METABOLIC [id number] 08:26:34 Test Item Value Reference Range Interpretation [...] code = See_Comment [Autom ated message] The 54031-9) system which ge nerated this result tra nsmitted reference range : >60 ML/MIN/1.73. Th e reference range was not used to interpr et this result as normal/abnormal . EGFR (test code = See_Comment [Automate d message] The 21488-2) system which ge nerated this result tra [...] code = See_Comment [Aut omated message] The 282-3) system which ge nerated this result tra nsmitted reference range : 3.5 - 5.4 MEQ/L. The reference range was not u sed to interpret this result as normal/abnormal . CHLORIDE (test code = See_Comment [Auto mated message] The ) system which ge nerated this result tra nsmitted reference range : 95 - 107 MEQ/L. The reference range was not u sed to interpret this result as normal/abnormal . CO2 (test code = See_Comment [Automated message] The 1963-06) system which ge nerated this result tra nsmitted reference range : 19 - 31 MEQ/L. The refe rence range was not u sed to interpret this result as normal/abnormal . CALCIUM (test code = See_Comment [Autom ated message] The 28134-9) system which ge nerated this result tra [...] code = See_Comment [Autom ated message] The 12163-5) system which ge nerated this result tra nsmitted reference range : 3.5 - 5.2 G/DL. The r eference range was not u sed to interpret this result as normal/abnormal . GLOBULINS, SERUM, TOTAL See_Comment [Au tomated message] The (test code = 96821-6) system which generated this result tra nsmitted [...] See_Comment [Auto mated message] The code = 1975-2) system which generated this result tra nsmitted reference range : <=1.2 MG/DL. The refe rence range was not u sed to interpret this result as normal/abnormal . ALKALINE PHOSPHATASE 68 U/L 40-112 (test code = 6768-6) AST (SGOT) (test code = 27 U/L 9-50 1920-8) ALT (SGPT) (test code = 37 U/L 5-50 Unl ess Otherwise 1744-2) Indicated, All Testing Performed At: [facility], [address] [place] [address] Director: Mario Singer M.D. CLIA Number [id number] Cap Accreditation N o. [facility] [id number] 07:07:13 Test Item Value Reference Range Interpretation Comments HEMATOCRIT (test code 49.8 % 40-51 NOTE NEW REFERENCE = 48658-1) RANGES FOR MULT IPLE COMPONENTS OF COMPLETEBLOOD C OUNT EFFECTIVE 021. THE ANALYTIC METHOD IS NOTCHANGED. PLE ASE REVIEW PATIENT RESULTS AND REFERENCE INTERVALSCARE LLY. FOR MORE INFORMATIO N, CONTACT YOUR ACCOUNT EX ECUTIVEOR SEE URL [email or web address] Unless Otherwis e Indicated, All Testing Performed At: [facility], [address] [place] [address] Laborator y Director: Mario Singer M.D. CLIA Number [id number] [place] o. [id number] [facility] H[id number] 11:21:51 Test Item Value Reference Range Interpretation Comments HEMATOCRIT (test code = 51.0 % 38-50 H Unl ess Otherwise 55808-5) Indicated, All Testing Performed At: [facility], [address] [place] [address] Laborator y Director: Mario Singer M.D. CLIA Number [id number] Cap Accreditation [place] o. [id number] Lab Interpretation Abnormal (test code = 43990-4) [facility] HospitalCOMPREHENSIVE METABOLIC [id number] 09:54:12 Test Item Value Reference Range Interpretation Comments GLUCOSE (test code = See_Comment [Autom ated message] 2345-7) The system [employer] generated this result transmitted ref erence range: 70 - 99 MG/DL. The reference r kathleen was not used to interpret this result as normal/abnor mal. BLOOD UREA NITROGEN See_Comment H [Automa elisa message] (test code = 3091-6) The sys tem which generated this result transmitted ref erence range: 6 - 20 M G/DL. The reference r kathleen was not used to interpret this result as normal/abnor mal. CREATININE (test code = See_Comment [Au tomated message] 2160-0) The system [employer] generated this result transmitted ref erence range: 0.80 - 1 .40 MG/DL. The refe rence range was not u sed to interpret this result as normal/abnor mal. EGFR AA (test code = See_Comment [Autom ated message] 12016-6) The system [employer] generated this result transmitted ref erence range: >60 ML/MIN/1.73. Th e reference range was not used to int erpret this result as normal/abnormal . EGFR (test code = See_Comment [Automate d message] 92544-0) The system [employer] generated this result transmitted ref erence range: >60 ML/MIN/1.73. Th e reference range was not used to int erpret this result as normal/abnormal . BUN/CREAT RATIO (test See_Comment [Auto mated message] code = 3097-3) The system [employer] generated this result transmitted ref erence range: 6 - 28 R ATIO. The reference r kathleen was not used to interpret this result as normal/abnor mal. SODIUM (test code = See_Comment [Automa elisa message] 2951-2) The system [employer] generated this result transmitted ref erence range: 133 - 14 6 MEQ/L. The refe rence range was not u sed to interpret this result as normal/abnor mal. POTASSIUM (test code = See_Comment [Aut omated message] 2823-3) The system [facility] generated this result transmitted ref erence range: 3.5 - 5. 4 MEQ/L. The refe rence range was not u sed to interpret this result as normal/abnor mal. CHLORIDE (test code = See_Comment [Auto mated message] 2075-0) The system [facility] generated this result transmitted ref erence range: 95 - 107 MEQ/L. The reference r kathleen was not used to interpret this result as normal/abnor mal. CO2 (test code = See_Comment [Automated message] 1962-8) The system [facility] generated this result transmitted ref erence range: 19 - 31 MEQ/L. The reference r kathleen was not used to interpret this result as normal/abnor mal. CALCIUM (test code = See_Comment [Autom ated message] 52424-9) The system [facility] generated this result transmitted ref erence range: 8.5 - 10 .5 MG/DL. The refe rence range was not u sed to interpret this result as normal/abnor mal. PROTEIN TOTAL (test See_Comment [Automa elisa message] code = 2885-2) The system [facility] generated this result transmitted ref erence range: 6.1 - 8. 3 G/DL. The reference r kathleen was not used to interpret this result as normal/abnor mal. ALBUMIN (test code = See_Comment [Autom ated message] 82686-4) The system [facility] generated this result transmitted ref erence range: 3.5 - 5. 2 G/DL. The reference r kathleen was not used to interpret this result as normal/abnor mal. GLOBULINS, SERUM, TOTAL See_Comment [Au tomated message] (test code = 42611-0) The sy stem which generated this result transmitted ref erence range: 1.9 - 3. 7 G/DL. The reference r kathleen was not used to interpret this result as normal/abnor mal. A/G RATIO (test code = See_Comment [Aut omated message] 1759-0) The system [facility] generated this result transmitted ref erence range: 1.0 - 2. 6 RATIO. The refe rence range was not u sed to interpret this result as normal/abnor mal. BILIRUBIN TOTAL (test See_Comment [Auto mated message] code = 1974-2) The system [facility] generated this result transmitted ref erence range: <=1.2 MG /DL. The reference r kathleen was not used to interpret this result as normal/abnor mal. ALKALINE PHOSPHATASE 81 U/L 40-112 (test code = 6768-6) AST (SGOT) (test code = 20 U/L 9-50 1920-8) ALT (SGPT) (test code = 28 U/L 5-50 Unl ess Otherwise 1744-2) Indicated, All Testing Performed At: [facility], [address] [place] [address] Laborator y Director: Mario Singer M.D. IA Number [id number] Cap Accreditation [place] o. [id number] Lab Interpretation Abnormal (test code = 56948-7) [facility] HospitalLIPID [id number] 09:54:12 Test Item Value Reference Range Interpretation Comments CHOLESTEROL (test code See_Comment [Aut omated message] = 2092-) The system [facility] generated this result transmitted ref erence range: <200 MG/ DL. The reference range was not used to int erpret this result as normal/abnormal . TRIGLYCERIDES (test See_Comment H [Automa elisa message] code = 2571-8) The system [facility] generated this result transmitted ref erence range: <150 MG/ DL. The reference range was not used to int erpret this result as normal/abnormal . HDL CHOLESTEROL (test See_Comment L [Auto mated message] code = 2085-9) The system [facility] generated this result transmitted ref erence range: >39 MG/D L. The reference range was not used to int erpret this result as normal/abnormal . LDL CHOLESTEROL See_Comment NOTE: CALCU LATED LDL CALCULATED (test code = [place] [address]-6) LUIS FERNANDO-SMITH METHOD WHICHINCLUDES ADJUSTABLE TRIGLYCERIDE:VL DL CHOLESTEROL RAT IO.THIS FACTOR VARIES B Y MEASURED TRIGLY CERIDE AND NON-HDLCHOL ESTEROL CONCENTRATIONS WITH INCREASED CALCU LATED LDL SEENIN HIGH ER TRIGLYCERIDE OR LOWER NON-HDL SPECIME NS. FOR MOREINFORMATION , SEE CLIENT ANNOUNCE MENT AT [email or web address] [Aut omated message] The sy stem which generated this result transmit elisa reference range : <100 MG/DL. The refe rence range was not u sed to interpret this result as normal/abnor mal. LDL/HDL RATIO, SERUM See_Comment Unless Otherwise (test code = 15744-6) Indica elisa, All Testing Performed At: [facility], [address] [place] [address] Laborator y Director: Mario Singer M.D. IA Number [id number] [place] o. [id number] [Autom ated message] The sy stem which generated this result transmit elisa reference range : <3.55 RATIO. The refe rence range was not u sed to interpret this result as normal/abnor mal. Lab Interpretation Abnormal (test code = 33095-0) [facility]
[2022-08-25 19:34] LABS: Absolute Lymphocytes (CBC) 0.9 K/uL (0.7-4.9); Hematocrit 46.7 % (39.6-49.0); Lymphocytes % 13.5 % (15.3-44.8); MCV 87.7 fL (80-100); MPV 8.3 fL (7.6-11.3); RBC Red Blood Cell Count 5.32 M/uL (4.33-5.43)
[2022-08-25 19:40] LABS: Urine Bacteria <20 /HPF (<20); Urine RBC >50 /HPF (None Seen)
[2022-08-25 19:50] LABS: Albumin 3.7 g/dL (3.4-5.0); Bilirubin Total 0.3 mg/dL (0.2-1.0); Potassium 4.1 mmol/L (3.5-5.1); Protein, Total 7.1 g/dL (6.4-8.2)
[2022-08-25 20:22] LABS: Specific Gravity 1.008 (1.005-1.030); Urine Bilirubin NEGATIVE (Negative); Urine Blood 3+ (OVER) (Negative); Urine Clarity Clear (Clear); Urine Color Colorless (Yellow); Urine Glucose NEGATIVE (Negative); Urine Protein 1+ (Negative); Urine Urobilinogen Normal (Normal)
[2022-08-25 21:04] LABS: Blood Morphology Comment NOT SEEN (NOT SEEN); Platelet Estimate ADEQ; White Blood Cell Scan OK (OK)
--- NOTE | 2022-08-25 21:05 | ER ---
Nurse's Notes [facility] Name: Scott Alvarez Age: 37 yrs Sex: Male : 1985 Arrival Date: 08/25/2022 Time: 18:18 Bed 24 Private MD: Diagnosis: Acute cystitis with hematuria Presentation: 08/25 18:38 Chief complaint: Patient states: around 1700 today pt noticed dark red blood in urine; vg1 denies back, ABD, or pelvic pain, also denies NV. Coronavirus screen: Vaccine status: Patient reports being unvaccinated. Client denies travel out of the [place] in the last 14 days. Ebola Screen: Patient denies exposure to infectious person. Patient denies travel to an Ebola-affected area in the 21 days before illness onset. Initial Sepsis Screen: Does the patient meet any 2 criteria? HR > 90 bpm. Does the patient have a suspected source of infection? No. Patient's initial sepsis screen is negative. Risk Assessment: Do you want to hurt yourself or someone else? Patient reports no desire to harm self or others. Onset of symptoms was August 25, 2022. 18:38 Method Of Arrival: Ambulatory vg1 18:38 Acuity: CHANEL 3 vg1 Triage Assessment: 18:43 General: Appears uncomfortable, Behavior is calm, cooperative. Pain: Denies pain. vg1 Neuro: Level of Consciousness is awake, alert, obeys commands, Oriented to person, place, time, situation. : Reports blood in urine Denies burning with urination, inability to void, urinary frequency. Historical: - Allergies: 18:41 No Known Allergies; vg1 - Home Meds: 18:41 None [Active]; vg1 - PMHx: 18:41 None; vg1 - PSHx: 18:41 Hernia Repair; vg1 18:43 Gynocomastio; vg1 - Immunization history:: Client reports having NOT received the Covid vaccine. - Social history:: Smoking status: Reported history of juuling and/or vaping. Screenin:31 Abuse screen: Denies threats or abuse. Nutritional screening: No deficits noted. bm7 Tuberculosis screening: No symptoms or risk factors identified. Fall Risk None identified. Assessment: 21:31 Reassessment: No changes from previously documented assessment. Patient and/or family bm7 updated on plan of care and expected duration. Pain level reassessed. Patient is alert, oriented x 3, equal unlabored respirations, skin warm/dry/pink. Vital Signs: 18:38 Pulse 108; Resp 18; Temp 98.4(TE); Pulse Ox 100% ; Weight 145.6 kg; Height 5 ft. 11 in. vg1 (180.34 cm); Pain 0/10; 20:51 BP 156 / 87; Pulse 78; Resp 16; Pulse Ox 98% on R/A; Pain 0/10; bm7 21:32 BP 156 / 87; Pulse 78; Resp 16; Pulse Ox 100% on R/A; Pain 0/10; bm7 18:38 Body Mass Index 44.77 (145.60 kg, 180.34 cm) 1 ED Course: 18:18 Patient arrived in ED. as 18:41 Triage completed. vg1 18:43 Arm band placed on. vg1 19:03 Rachel Ocampo, RN is Primary Nurse. bm7 19:18 Humberto Hernadez MD is Attending Physician. kdr 19:20 Initial lab(s) drawn, by dc, sent to lab. Inserted saline lock: 20 gauge in right bm7 antecubital area, using aseptic technique. Blood collected. Patient maintains SpO2 saturation greater than 95% on room air. 21:31 Patient has correct armband on for positive identification. Call light in reach. bm7 21:31 Client placed on continuous cardiac and pulse oximetry monitoring. NIBP monitoring bm7 applied. Warm blanket given. Assisted to bathroom. 21:31 No provider procedures requiring assistance completed. Urine collected: clean catch 7 specimen, blood tinged. IV discontinued, intact, bleeding controlled, No redness/swelling at site. Pressure dressing applied. Administered Medications: No medications were administered Medication: 21:31 VIS not applicable for this client. bm7 Outcome: 21:05 Discharge ordered by . kdr 21:31 Discharged to home ambulatory. bm7 21:31 Condition: good 21:31 Discharge instructions given to patient, Instructed on discharge instructions, follow up and referral plans. medication usage, Demonstrated understanding of instructions, follow-up care, medications, Prescriptions given X 1. 21:32 Patient left the ED. bm7 Signatures: Humberto Hernadez MD MD kdr Ayah Norris Victoria, RN RN vg1 Rachel Ocampo RN RN bm7 Corrections: (The following items were deleted from the chart) 18:43 18:41 PMHx: blood disorder; vg1 vg1
--- NOTE | 2022-08-25 21:05 | EDPHYS ---
Physician Documentation [facility] Name: Scott Alvarez Age: 37 yrs Sex: Male : 1985 Arrival Date: 08/25/2022 Time: 18:18 Bed 24 Private MD: ED Physician Humberto Hernadez HPI: 08/25 21:02 This 37 yrs old Male presents to ER via Ambulatory with complaints of Urinary Problem. kdr 21:02 The patient states that he started having hematuria today. He is urinated several times kdr and all have been bloody in nature. But it has been dark in color. No blood clots. He had this once previously. At that time he apparently passed a kidney stone without any other symptoms. The only way he knew he had a kidney stone is that he heard the stone hit the toilet when he was peeing. Patient is nontoxic-appearing and otherwise not requiring any acute or urgent intervention. Onset: The symptoms/episode began/occurred suddenly, today. Severity of symptoms: At their worst the symptoms were mild in the emergency department the symptoms are unchanged. The patient has experienced a previous episode, approximately 5 years ago. The patient has not recently seen a physician. Historical: - Allergies: 18:41 No Known Allergies; vg1 - Home Meds: 18:41 None [Active]; vg1 - PMHx: 18:41 None; vg1 - PSHx: 18:41 Hernia Repair; vg1 18:43 Gynocomastio; vg1 - Immunization history:: Client reports having NOT received the Covid vaccine. - Social history:: Smoking status: Reported history of juuling and/or vaping. ROS: 21:02 Constitutional: Negative for fever, chills, and weight loss, Eyes: Negative for injury, kdr pain, redness, and discharge, ENT: Negative for injury, pain, and discharge, Neck: Negative for injury, pain, and swelling, Cardiovascular: Negative for chest pain, palpitations, and edema, Respiratory: Negative for shortness of breath, cough, wheezing, and pleuritic chest pain, Abdomen/GI: Negative for abdominal pain, nausea, vomiting, diarrhea, and constipation, Back: Negative for injury and pain, MS/Extremity: Negative for injury and deformity, Skin: Negative for injury, rash, and discoloration, Neuro: Negative for headache, weakness, numbness, tingling, and seizure activity. Psych: Negative for depression, anxiety, suicide ideation, homicidal ideation, and hallucinations, Allergy/Immunology: Negative for hives, rash, and allergies, Endocrine: Negative for neck swelling, polydipsia, polyuria, polyphagia, and marked weight changes, Hematologic/Lymphatic: Negative for swollen nodes, abnormal bleeding, and unusual bruising. 21:02 : Positive for urinary symptoms, hematuria, Negative for burning with urination, difficulty urinating, bladder incontinence. Exam: 21:02 Constitutional: This is a well developed, well nourished patient who is awake, alert, kdr and in no acute distress. Head/Face: Normocephalic, atraumatic. Eyes: Pupils equal round and reactive to light, extra-ocular motions intact. Lids and lashes normal. Conjunctiva and sclera are non-icteric and not injected. Cornea within normal limits. Periorbital areas with no swelling, redness, or edema. Neck: Trachea midline, no thyromegaly or masses palpated, and no cervical lymphadenopathy. Supple, full range of motion without nuchal rigidity, or vertebral point tenderness. No Meningismus. Chest/axilla: Normal chest wall appearance and motion. Nontender with no deformity. No lesions are appreciated. Cardiovascular: Regular rate and rhythm with a normal S1 and S2. No gallops, murmurs, or rubs. Normal PMI, no JVD. No pulse deficits. Respiratory: Lungs have equal breath sounds bilaterally, clear to auscultation and percussion. No rales, rhonchi or wheezes noted. No increased work of breathing, no retractions or nasal flaring. Abdomen/GI: Soft, non-tender, with normal bowel sounds. No distension or tympany. No guarding or rebound. No evidence of tenderness throughout. Back: No spinal tenderness. No costovertebral tenderness. Full range of motion. Skin: Warm, dry with normal turgor. Normal color with no rashes, no lesions, and no evidence of cellulitis. 21:02 MS/ Extremity: Pulses equal, no cyanosis. Neurovascular intact. Full, normal range of motion. Neuro: Awake and alert, GCS 15, oriented to person, place, time, and situation. Cranial nerves II-XII grossly intact. Motor strength 5/5 in all extremities. Sensory grossly intact. Cerebellar exam normal. Normal gait. Psych: Awake, alert, with orientation to person, place and time. Behavior, mood, and affect are within normal limits. 21:02 Abdomen/GI: Inspection: obese Vital Signs: 18:38 Pulse 108; Resp 18; Temp 98.4(TE); Pulse Ox 100% ; Weight 145.6 kg; Height 5 ft. 11 in. vg1 (180.34 cm); Pain 0/10; 20:51 BP 156 / 87; Pulse 78; Resp 16; Pulse Ox 98% on R/A; Pain 0/10; bm7 21:32 BP 156 / 87; Pulse 78; Resp 16; Pulse Ox 100% on R/A; Pain 0/10; bm7 18:38 Body Mass Index 44.77 (145.60 kg, 180.34 cm) vg1 MDM: 21:02 Data reviewed: vital signs, nurses notes, lab test result(s), radiologic studies. kdr Counseling: I had a detailed discussion with the patient and/or guardian regarding: the historical points, exam findings, and any diagnostic results supporting the discharge/admit diagnosis, lab results, radiology results, the need for outpatient follow up. 21:05 Patient medically screened. kdr 08/25 19:03 Order name: Urine Microscopic Only [facility] 08/25 19:09 Order name: CBC with Diff [facility] 08/25 19:09 Order name: CMP [facility] 08/25 19:09 Order name: Lipase [facility] 08/25 19:20 Order name: Urine Culture [facility] 08/25 19:40 Order name: Urine Microscopic Only; Complete Time: 21:19 [facility] 08/25 19:04 Order name: Urine Dipstick-Ancillary (obtain specimen); Complete Time: 19:04 [facility] 08/25 19:09 Order name: IV Saline Lock; Complete Time: 19:18 [facility] 08/25 19:09 Order name: Labs collected and sent; Complete Time: 19:18 [facility] 08/25 19:42 Order name: CBC with Automated Diff; Complete Time: 21:19 [facility] 08/25 19:51 Order name: Comprehensive Metabolic Panel; Complete Time: 21:19 [facility] 08/25 19:51 Order name: Lipase; Complete Time: 21:19 [facility] 08/25 20:20 Order name: Urinalysis W/Microscopic; Complete Time: 21:19 [facility] 08/25 21:04 Order name: CBC Smear Scan; Complete Time: 21:19 [facility] Administered Medications: No medications were administered Disposition Summary: 08/25/22 21:05 Discharge Ordered Location: Home kdr Condition: Stable kdr Problem: new kdr Symptoms: have improved kdr Diagnosis - Acute cystitis with hematuria kdr Followup: kdr - With: Private Physician - When: 2 - 3 days - Reason: If symptoms return, Further diagnostic work-up, Recheck today's complaints, Continuance of care, Re-evaluation by your physician Discharge Instructions: - Discharge Summary Sheet kdr - Hematuria, Adult kdr - Hemorrhagic Cystitis kdr Forms: - Medication Reconciliation Form kdr - Thank You Letter kdr - Antibiotic Education kdr Prescriptions: - Cipro 500 mg Oral Tablet - take 1 tablet by ORAL route every 12 hours for 7 days; 14 tablet; Refills: 0, kdr Product Selection Permitted Signatures: Dispatcher [employer] EDMS Humberto Hernadez MD MD kdr Carina Santoro RN RN vg1 Rachel Ocampo RN RN bm7 Corrections: (The following items were deleted from the chart) 18:43 18:41 PMHx: blood disorder; vg1 vg1
[2022-08-25 21:43] VITALS: TEMP 98.4
[2022-08-25 21:45] VITALS: BP 156/87
[2022-08-25 21:46] VITALS: O2SAT 100
== END 2022-08-25 21:32 | disposition home or self-care (01) ==
LOC: ER 18:16
DX: N30.01 Acute cystitis with hematuria (principal); Z28.310 Unvaccinated for COVID-19; Z87.891 Personal history of nicotine dependence
CPT/HCPCS: 36415; 80053; 81001; 83690; 85025; 87086; 87088; 99284